=== PATIENT | female | born 1950 | race Caucasian/White ===

== ENCOUNTER 2020-02-23 07:00 | Outpatient (NON) | payer MEDICARE, SELFPAY ==
[2020-02-23 22:30] LABS: SARS-CoV-2 RNA PCR Negative
== END 2020-02-23 07:01 ==
PROVIDERS: PCP Family Medicine; Visit Provider Family Medicine
DX: Z20.828 Contact with and (suspected) exposure to other viral communicable diseases (principal); J02.9 Acute pharyngitis, unspecified
CPT/HCPCS: 87635; C9803; U0003

== ENCOUNTER 2020-03-29 06:53 | Outpatient (NON) | payer MEDICARE, SELFPAY ==
[2020-03-30 13:43] LABS: SARS-CoV-2 RNA PCR Negative
== END 2020-03-29 06:54 ==
LOC: ANHCOVIDDT 07:19
PROVIDERS: PCP Family Medicine; Visit Provider Family Medicine
DX: J02.9 Acute pharyngitis, unspecified (principal); Z20.828 Contact with and (suspected) exposure to other viral communicable diseases
CPT/HCPCS: 87635; C9803; U0003

== ENCOUNTER 2020-08-27 10:20 | Outpatient (CLI) | payer MEDICARE, SELFPAY ==
--- NOTE | ~2020-08-27 | MM_ITS ---
EXAMINATION: MM screening [facility] BI w marcos HISTORY: Screening mammogram TECHNIQUE: Craniocaudal and mediolateral oblique 3-D tomosynthesis images were obtained and synthetic 2-D images were generated. CAD analysis was submitted and interpreted. COMPARISON: No prior mammogram is available for comparison at this institution. BREAST PARENCHYMAL COMPOSITION: There are scattered areas of fibroglandular density. FINDINGS: There is no evidence of suspicious mass, calcification, or architectural distortion to sugg est malignancy in either breast. There has been no suspicious interval change. IMPRESSION: 1. No mammographic evidence of malignancy. 2. Recommend routine screening mammography in one year. BI-RADS Category 1: Negative Reviewed, dictated and finalized at location A.
== END 2020-08-27 10:21 | disposition home or self-care (01) ==
PROVIDERS: PCP Family Medicine; Visit Provider Family Medicine
DX: Z12.31 Encounter for screening mammogram for malignant neoplasm of breast (principal)
CPT/HCPCS: 77063; 77067

== ENCOUNTER 2022-07-22 12:11 | Outpatient (CLI) | payer MEDICARE, SELFPAY ==
--- NOTE | 2022-07-22 12:23 | ECG_ITS ---
Measurements Intervals [place] Rate: 88 P: 73 [place]: 159 QRS: 26 QRSD: 91 T: 56 QT: 363 QTc: 441 Interpretive Statements SINUS RHYTHM NORMAL ECG NO PREVIOUS ECG AVAILABLE FOR COMPARISON Electronically Signed On 07-22-2022 14:34:35 CDT by Dimitris Williamson D.O.
== END 2022-07-22 12:12 | disposition home or self-care (01) ==
PROVIDERS: PCP Family Medicine; Visit Provider Family Medicine
DX: I49.9 Cardiac arrhythmia, unspecified (principal)
CPT/HCPCS: 93005

== ENCOUNTER → 2023-01-08 10:01 | Outpatient (CLI) | payer MEDICARE, SELFPAY ==
--- NOTE | ~2023-01-08 | MM_ITS ---
EXAMINATION: MM screening wilbert BI w marcos HISTORY: Screening mammogram TECHNIQUE: Craniocaudal and mediolateral oblique 3-D tomosynthesis images were obtained and synthetic 2-D images were generated. CAD analysis was submitted and interpreted. COMPARISON: August 27, 2020 bilateral screening mammogram BREAST PARENCHYMAL COMPOSITION: There are scattered areas of fibroglandular density. FINDINGS: There is no evidence of suspicious mass, calcification, or architectural distortion to sugg est malignancy in either breast. There has been no suspicious interval change. IMPRESSION: 1. No mammographic evidence of malignancy. 2. Recommend routine screening mammography in one year. BI-RADS Category 1: Negative Reviewed, dictated and finalized at location A.
== END ==
PROVIDERS: PCP Nurse Practitioner Family; Visit Provider Nurse Practitioner Family
DX: Z12.31 Encounter for screening mammogram for malignant neoplasm of breast (principal)
CPT/HCPCS: 77063; 77067

== ENCOUNTER 2023-11-18 10:43 | Emergency (ER) | payer MEDICARE, SELFPAY ==
[2023-11-18 10:59] VITALS: BP 133/68; PULSE 71; RESP 16; TEMP 37.2; O2SAT 99
--- NOTE | 2023-11-18 12:01 | ED.EYEPROB ---
HPI - Eye Problem General Chief complaint: Eye Problems Stated complaint: right eye issue Time Seen by Provider: 11/18/23 11:53 Source: patient and RN notes reviewed Mode of arrival: ambulatory Limitations: no limitations History of Present Illness HPI Narrative: Patient presents today complaining of irritation and swelling to the right upper eyelid. Discomfort started 3 or 4 days ago and swallowed started yesterday. Denies drainage. She does were glasses. Denies vision changes. Related Data Home Medications Medication Instructions Recorded Confirmed cyanocobalamin (vitamin B-12) 500 500 mcg PO DAILY 03/23/19 07/27/23 mcg tablet (Vitamin B-12) calcium carbonate (Calcium 600) 600 mg PO BID 11/15/19 07/27/23 fexofenadine 180 mg tablet 180 mg PO DAILY PRN allergy 11/15/19 07/27/23 (Allergy Relief (fexofenadine)) tetrahydrozoline 0.05 % eye drops 1 drp ophthalmic (eye) ONCE PRN 05/20/20 07/27/23 (Visine) itchy eye cholecalciferol (vitamin D3) 50 2,000 unit PO DAILY 11/05/20 07/27/23 mcg (2,000 unit) capsule Allergies Allergy/AdvReac Type Severity Reaction Status Date / Time adhesive tape Allergy Mild Verified 05/14/16 09:05 menthol Allergy Mild Verified 05/14/16 09:05 adhesive Allergy Unknown Verified 02/04/10 15:56 Review of Systems Review of Systems: CONSTITUTIONAL: Denies body aches, fever, chills, or sweats. EYES: Denies visual changes, redness, or discharge.+ right eyelid irritation and swelling ENT: Denies rhinorrhea, congestion, sore throat, or otalgia. CARDIOVASCULAR: Denies chest pain, palpitations, or edema. RESPIRATORY: Denies cough or dyspnea. GASTROINTESTINAL: Denies abdominal pain, nausea, vomiting, or diarrhea. GENITOURINARY: Denies dysuria or hematuria. SKIN: Denies rash, itching, or wounds. MUSCULOSKELETAL: Denies back pain, joint pain, or myalgia. NEUROLOGIC: Denies headache, numbness, tingling, or weakness. PSYCH: Denies depression or anxiety. [facility], [facility] Past Medical History Medical History Arrhythmia (07/22/22) irregularly irregular . TSH normal 4.10 06/29/2022. EKG 07/22/2022 with normal sinus rhythm At high risk for falls At moderate risk for fall BMI 34.0-34.9,adult BMI 37.0-37.9, adult BMI 38.0-38.9,adult BMI 39.0-39.9,adult Breast cancer screening by mammogram normal mammogram 01/08/2023 with recheck annually. Chronic right hip pain (~2021) Colon cancer screening normal colonoscopy 2016 with recheck in 10 years. COVID-19 (~07/02/22) Dyshidrotic eczema (~09/04/21) on the feet Elevated TSH (06/30/23) TSH elevated at 5.43 on 06/30/2023. Fungal infection of nail all of the toenails 09/04/2021 Grieving (~06/2022) around June,. Left knee pain Mixed hyperlipidemia cholesterol 215, triglycerides 131 with HDL excellent at 74 and LDL elevated 116 with ratio normal at 2.9 on 06/30/2023. Obesity (BMI 30-39.9) Polycythemia hemoglobin 15.6, hematocrit 48.7 on 06/30/2023. Sore throat Tinea pedis Family History Family History Father Family history of tuberculosis Family history of emphysema Family history of coronary artery disease Mother Diabetes mellitus Hypertension Grandparent Family history of malignant neoplasm of uterus Other Cerebrovascular accident Family history of allergic disorder Family history of chronic obstructive pulmonary disease Social History Social History Smoking status: Former smoker Alcohol intake: never Substance use: never Substance use type: does not use Lack of Transportation: No Lack of Food: Never True Current Housing: I Have Housing Concerned About Future Housing: No Difficulty Paying Gas/Electric Bills: No Difficulty Paying for Meds: No Currently Unemployed: No Education: High School Diploma/GED
== END 2023-11-18 12:14 | disposition home or self-care (01) ==
PROVIDERS: Emergency Provider Nurse Practitioner; PCP Nurse Practitioner Family
DX: H02.89 Other specified disorders of eyelid (principal); H02.841 Edema of right upper eyelid; Z87.891 Personal history of nicotine dependence; E78.2 Mixed hyperlipidemia; E66.9 Obesity, unspecified; Z68.39 Body mass index [BMI] 39.0-39.9, adult; Z86.16 Personal history of COVID-19
CPT/HCPCS: 99212; G0463

== ENCOUNTER → 2024-02-02 15:03 | Outpatient (CLI) | payer MEDICARE, SELFPAY ==
--- NOTE | ~2024-02-02 | XR_ITS ---
XR cervical spine min 6V Ordering provider: Vu Adorno MD History: . pain lower neck/into rt shoulder blade a while no injury . Comparison: None. FINDINGS: VERTEBRAL BODIES: Postoperative changes seen at the levels of C3, C4 and C5. Otherwise, Normal height and alignment. No visible fracture or subluxation. The dens is intact. DISK SPACES: Disc spacers seen at the level of C4-C5. Otherwise, Narrowing of all the other disc spac es is noted. Multilevel facet joint disease. Multilevel uncovertebral joint osteoarthritic changes. B ilateral narrowing of the foramina is seen in the lower cervical area. PARASPINOUS SOFT TISSUES: No prevertebral soft tissue swelling. IMPRESSION: No acute osseous abnormality cervical spine. Postoperative changes in the mid cervical area. Multilevel degenerative disc disease, facet joint disease and uncovertebral osteoarthritic changes wi th intervertebral foraminal narrowing in the lower cervical areas. Reviewed, dictated and finalized at location A. IMPRESSION: No acute osseous abnormality cervical spine. Postoperative changes in the mid cervical area. Multilevel degenerative disc disease, facet joint disease and uncovertebral ost eoarthritic changes with intervertebral foraminal narrowing in the lower cervic al areas.
--- NOTE | ~2024-02-02 | XR_ITS ---
3 VIEWS THORACIC SPINE Ordering provider: Vu Adorno MD History: . pain mid back/rt shoulder blade no injury off/on awhile . Comparison: None. FINDINGS: VERTEBRAL BODIES: Dextroscoliosis in the lumbar area. Compression fracture with Loss of volume of T12 which may be acute or chronic. Otherwise, Normal height and alignment. No other visible fracture or subluxation. DISK SPACES: Narrowing is seen at multiple levels. SOFT TISSUES: Normal. IMPRESSION: Compression fracture of T12 which may be acute or chronic. Otherwise, No acute other osseous abnormal ity of the thoracic spine. Levoscoliosis in the lumbar spine. Reviewed, dictated and finalized at location A. IMPRESSION: Compression fracture of T12 which may be acute or chronic. Otherwise, No acute other osseous abnormality of the thoracic spine. Levoscoliosis in the lumbar spine.
== END ==
PROVIDERS: PCP Family Medicine; Visit Provider Family Medicine
DX: S22.080A Wedge compression fracture of T11-T12 vertebra, initial encounter for closed fracture (principal); X58.XXXA Exposure to other specified factors, initial encounter; M51.34 Other intervertebral disc degeneration, thoracic region
CPT/HCPCS: 72052; 72070

== ENCOUNTER 2024-03-08 09:47 | Outpatient (CLI) | payer MEDICARE, SELFPAY ==
--- NOTE | 2024-04-02 18:35 | WPDSLEEPSTUD ---
Sleep Study Date of Study: 03/08/24 Ordering Provider: Vu Adorno MD Interpreting Physician: Yadira Kwong DO Sleep Study Type: Split Polysomnogram Height: 1.52 m Weight: 86.183 kg Body Mass Index: 37.0 Neck Circumference (inches): 15 [place]: 8 Reason for Sleep Study Difficulty sleeping Sleep History The patient is a 73-year-old female that had a sleep study ordered due to difficulty sleeping. The patient rarely awakens from sleep short of breath. She denies awakening at night with heartburn, belching or cough. She denies snoring. She denies having trouble sleeping when she has a cold. She denies waking up gasping for air throughout the night. She denies having breathing problems at night observed by herself or others. She rarely sweats excessively at night. She rarely has heart palpitations or irregular heartbeats during the night. She frequently falls asleep during the day but never while driving. She denies sleep paralysis and hypnagogic/ hypnopompic hallucinations. She rarely experiences loss of muscle tone when extremely emotional. She denies having trouble at school or work due to sleepiness. She denies feeling afraid of going to sleep. She rarely has nightmares. She rarely remembers her dreams. She frequently has thoughts racing through her mind. She frequently feels sad or depressed. She occasionally has anxiety. She rarely has muscular tension. She frequently notices parts of her body jerk. She denies kicking during the night. She denies having crawling and aching feelings in her legs. She rarely has leg pain during the night. She occasionally grinds her teeth during sleep but never awakens with morning jaw pain. She is occasionally bothered by pain during the day but rarely awakened by pain during the night. She constantly wakes up feeling stiff in the morning. She frequently wakes with sore or achy muscles. She frequently wakes up with pain in the neck, spine and other joints. She goes to bed between 9-10 p.m. on both weekdays and weekends. It takes her 60-90 minutes to fall asleep. She wakes up once throughout the night to urinate and that can take an hour for her to fall back asleep. She wakes up between 4:30-5 a.m. on both weekdays and weekends. She typically gets 5 hours of sleep per night. She currently lives alone. She denies consuming any caffeinated beverages within 2 hours of bedtime. She denies engaging in physical exercise before bedtime. She will occasionally read before falling asleep. She will watch television before falling asleep. She will take naps in the afternoon and evening and they are refreshing. She has 1 cup of coffee per day. She quit smoking cigarettes 16 years ago. She denies alcohol and recreational drug use. [facility] Past Medical History Medical History Arrhythmia (07/22/22) irregularly irregular . TSH normal 4.10 06/29/2022. EKG 07/22/2022 with normal sinus rhythm At high risk for falls At moderate risk for fall BMI 34.0-34.9,adult BMI 37.0-37.9, adult BMI 38.0-38.9,adult BMI 39.0-39.9,adult Breast cancer screening by mammogram normal mammogram 01/08/2023 with recheck annually. Chronic right hip pain (~2021) Chronic thoracic back pain X-ray T-spine 02/02/2024 with diffuse degenerative disc disease and arthritis. Colon cancer screening normal colonoscopy 2016 with recheck in 10 years. COVID-19 (~07/02/22) Dyshidrotic eczema (~09/04/21) on the feet Elevated TSH (06/30/23) TSH elevated at 5.43 on 06/30/2023. Fungal infection of nail all of the toenails 09/04/2021 Grieving (~06/2022) around June,. Hypersomnia (~2023) Left knee pain Mixed hyperlipidemia cholesterol 215, triglycerides 131 with HDL excellent at 74 and LDL elevated 116 with ratio normal at 2.9 on 06/30/2023. Obesity (BMI 30-39.9) Polycythemia hemoglobin 15.6, hematocrit 48.7 on 06/30/2023. Sore throat Tinea pedis Family History Family History Father Family history of tuberculosis Family history of emphysema Family history of coronary artery disease Mother Diabetes mellitus Hypertension Grandparent Family history of malignant neoplasm of uterus Other Cerebrovascular accident Family history of allergic disorder Family history of chronic obstructive pulmonary disease Social History Social History Smoking status: Former smoker Alcohol intake: never Substance use: never Substance use type: does not use Lack of Transportation: No Lack of Food: Never True Current Housing: I Have Housing Concerned About Future Housing: No Difficulty Paying Gas/Electric Bills: No Difficulty Paying for Meds: No Currently Unemployed: No Education: High School Diploma/GED Difficulty w/ Childcare or Family Care: No Medications Home Medications Medication Instructions Recorded Confirmed Type cyanocobalamin (vitamin B-12) 500 500 mcg PO DAILY 03/23/19 02/02/24 History mcg tablet (Vitamin B-12) calcium carbonate (Calcium 600) 600 mg PO BID 11/15/19 02/02/24 History fexofenadine 180 mg tablet 180 mg PO DAILY PRN allergy 11/15/19 02/02/24 History (Allergy Relief (fexofenadine)) tetrahydrozoline 0.05 % eye drops 1 drp ophthalmic (eye) ONCE PRN 05/20/20 02/02/24 History (Visine) itchy eye cholecalciferol (vitamin D3) 50 2,000 unit PO DAILY 11/05/20 02/02/24 History mcg (2,000 unit) capsule lisinopril 40 mg tablet 40 mg PO DAILY #90 tabs 06/10/23 02/02/24 Rx omeprazole 20 mg capsule,delayed 20 mg PO DAILY #90 caps 06/10/23 02/02/24 Rx release celecoxib 200 mg capsule (Celebrex) 200 mg PO DAILY PRN pain #90 caps 02/21/24 Rx Sleep Procedure A full night split study using the [employer] multi-channel system recorded the standard physiologic parameters including EEG, EOG, submentalis EMG, anterior tibialis EMG, EKG, body position, nasal and oral airflow using nasal pressure sensor and thermistor.? Respiratory parameters of chest and abdominal movements were recorded with Respiratory Inductance Plethysmography belts. Oxygen saturation was recorded by pulse oximetry. Video monitoring was also performed. Sleep stages, periodic limb movements, and EEG arousals were scored in 30 second epochs according to the criteria of the AASM Scoring Manual. The Apnea-Hypopnea Index was calculated using CMS guidelines for definition of hypopnea with 4% O2 desaturations while scoring respiratory events. Sleep Architecture During the diagnostic portion of the study, the total recording time was 190.1 minutes. The total sleep time was 129.5 minutes. Sleep latency was 11.1 minutes.? REM latency was 95.5 minutes. Sleep Efficiency was 68.1%. The patient had 24 awakenings for an awakening index of 11.1. Wake after sleep onset time was 49.5 minutes. The patient spent 18.5 minutes, 14.3% of total sleep time in Stage N1. The patient spent 84.5 minutes, 65.3% in Stage N2. The patient spent 7.0 minutes, 5.4% in Stage N3. The patient spent 19.5 minutes, 15.1% in Stage REM sleep. At 01:26:56 AM the patient was placed on PAP treatment and was titrated at pressures ranging from 5 cm H20 up to 7 cm H20. During the treatment portion of the study, the total recording time was 225.2 minutes.? The total sleep time was 134.5 minutes. Sleep latency was 7.5 minutes. REM latency was 57.0 minutes. Sleep Efficiency was 59.7%. Wake after Sleep Onset time was 83.0 minutes. The patient spent 21.0 minutes, 15.6% of total sleep time in Stage N1. The patient spent 87.5 minutes, 65.1% in Stage N2. The patient spent 0.0 minutes, 0.0% in Stage N3. The patient spent 26.0 minutes, 19.3% in Stage REM. Respiratory Analysis During the diagnostic portion of the study, the patient had 12 hypopneas and 2 central apneas for an overall Apnea Hypopnea Index of 6.5 events per hour. The REM Apnea Hypopnea Index was 33.8. The NREM Apnea Hypopnea Index was 1.6. The patient had a Central Apnea Hypopnea Index of 0.9. There was no evidence of Jayjay-Campbell Respirations. During the treatment portion of the study, the patient had 12 hypopneas for an overall Apnea Hypopnea Index of 5.4 events per hour. The REM Apnea Hypopnea Index was 23.1. The NREM Apnea Hypopnea Index was 1.1. The patient had a Central Apnea Hypopnea Index of 0. There was no evidence of Jayjay-Campbell Respirations. The patient was started on CPAP 5 cm H2O and titrated to CPAP 7 cm H2O due to hypopneas. The patient was able to fall asleep starting on CPAP 5 cm H2O. The patient was able to achieve REM sleep starting on CPAP 5 cm H2O. The patient was able to achieve a residual AHI less than 5 with both NREM and REM sleep in the supine position on the final pressure. On CPAP 7 cm H2O, the patient spent 56 minutes in NREM and 0.5 minutes in REM with 2 hypopneas, resulting in an AHI of 2.1. The patient had a sleep efficiency of 42.8% on this pressure setting. Arousals During the diagnostic portion of the study, there were a total of 47 arousals for an arousal index of 21.8.? There were 4 respiratory arousals for an index of 1.9. There were 12 periodic limb movement arousals for an index of 5.6.? There were 9 isolated limb movement arousals for an index of 4.2. There were 23 spontaneous arousals for an index of 10.7. During the treatment portion of the study, there were a total of 71 arousals for an index of 31.7.? There were 2 respiratory arousals for an index of 0.9. There were 10 periodic limb movement arousals for an index of 4.5.? There were 9 isolated limb movement arousals for an index of 4.0. There were 50 spontaneous arousals for an index of 22.3. Periodic Limb Movements During the diagnostic portion of the study, the patient had 14 isolated limb movements with an index of 6.5. The patient had 155 periodic limb movements with an index of 71.8, which is elevated (normal < 15). The patient had a total of 169 limb movements with a total limb movement index of 78.3. During the treatment portion of the study, the patient had 13 isolated limb movements with an index of 5.8. The patient had 36 periodic limb movements with an index of 16.1, which is elevated (normal < 15). The patient had a total of 49 limb movements with a total limb movement index of 21.9. Oximetry Data During the diagnostic portion of the study, the patient had an average oxygen saturation of 94% in wake with a minimum oxygen saturation of 83% and a maximum oxygen saturation of 98%. The patient had an average oxygen saturation of 91.8% in sleep with a minimum oxygen saturation of 84.0% and a maximum oxygen saturation of 98.0%. The patient had 14 oxygen desaturations resulting in an Oxygen Desaturation Index of 6.5. The patient spent 7.3 minutes, 3.8% of total sleep time with an oxygen saturation less than 88%. During the treatment portion of the study, the patient had an average oxygen saturation of 93.9% in wake with a minimum oxygen saturation of 87.0% and a maximum oxygen saturation of 98.0%. The patient had an average oxygen saturation of 92.5% in sleep with a minimum oxygen saturation of 87.0% and a maximum oxygen saturation of 97.0%. The patient had 12 oxygen desaturations resulting in an Oxygen Desaturation Index of 5.4. The patient spent 0.5 minutes, 0.2% of total sleep time with an oxygen saturation less than 88%. Snoring Profile Mild snoring was present intermittently in the baseline portion of the study. Cardiac Profile The EKG lead showed normal sinus rhythm. No arrhythmias or PVCs were seen. During the diagnostic portion of the study, the average pulse rate was 74.8 bpm.? The minimum pulse rate was 56.0 bpm. The maximum pulse rate was 113.0 bpm. During the treatment portion of the study, the average pulse rate was 72.1 bpm.? The minimum pulse rate was 54.0 bpm. The maximum pulse rate was 107.0 bpm. EEG Profile No signs of seizure activity seen. Assessment and Plan Assessment and Plan (1) SALLIE (obstructive sleep apnea): Code(s): G47.33 - Obstructive sleep apnea (adult) (pediatric) Status: Acute Assessment and Plan: In the baseline portion of the study, the patient had an overall AHI of 6.5 with desaturation down to 84%. This is consistent with mild sleep apnea. Due to the patient's hypertension, she qualifies for treatment. The patient was started on CPAP 5 cm H2O and titrated to CPAP 7 cm H2O due to hypopneas. The patient's sleep apnea resolved on the final pressure setting. I recommend that the patient be prescribed CPAP 7 cm H2O, size small Resmed N30i mask, CPAP filters/tubing and heated humidity. This should be used with all episodes of sleep.? Compliance should be reviewed within 31-90 days of starting therapy for usage greater than 4 hours per night greater than 70% of the nights. The patient should be asked about symptoms such as?excessive daytime sleepiness, quality of sleep, decreased nocturia, increased?mental functioning such as memory, mood, and concentration. The patient also mentioned having frequent symptoms of anxiety and depression in her sleep history. I recommend that the patient complete a PHQ-9 and MIKE-7 for further evaluation of mood disorders and review the results with her PCP. (2) PLMD (periodic limb movement disorder): Code(s): G47.61 - Periodic limb movement disorder Status: Acute Assessment and Plan: The patient had a significant number of limb movements during the study with the majority being periodic in nature. The patient's sleep history does not suggest Restless Leg Syndrome. I recommend that the patient have a serum ferritin drawn for evaluation of iron deficiency anemia. If the patient has a serum ferritin less than 75 ng/mL, I recommend starting a daily iron supplement and a Vitamin C supplement for better absorption. If the serum ferritin is greater than 75 ng/mL, I recommend starting a dopamine agonist and titrating the dose until symptoms resolve. There are nonpharmacological methods to treat limb movements including daily exercise, stretching calf muscles before bed, avoiding excessive amounts of caffeine and alcohol, vitamin B supplementation, magnesium lotion massaged into legs before bed, and use of a weighted blanket. Data The data obtained during this sleep study is adequate for interpretation. Certification This sleep study has been reviewed by a board certified sleep medicine physician.
[2024-04-02 18:37] VITALS: BMI 37.0
== END 2024-03-09 05:34 | disposition home or self-care (01) ==
LOC: ANHCSM 09:55
PROVIDERS: PCP Family Medicine; Visit Provider Family Medicine
DX: G47.8 Other sleep disorders (principal); G47.33 Obstructive sleep apnea (adult) (pediatric); G47.61 Periodic limb movement disorder
CPT/HCPCS: 95811

== ENCOUNTER 2024-04-21 11:34 | Inpatient (IN) | payer MEDICARE, SELFPAY ==
[2024-04-21] VITALS (13 sets, daily range): BP systolic 113–158; BP diastolic 66–95; PULSE 79–108; RESP 14–20; TEMP 36.2–37.1; O2SAT 94–100; BMI 38.6
--- NOTE | ~2024-04-21 | CT_ITS ---
EXAMINATION: CT abdomen pelvis w con DATE: 04/21/2024 12:36 INDICATION: Nausea, vomiting and diarrhea. Abdominal pain. TECHNIQUE: Computed tomography (CT) of the abdomen and pelvis was performed with 100 mL Omnipaque-350 intravenous contrast. Automated exposure control and iterative reconstruction technique were employe d. The dose-length product was 826.29 mGy-cm. COMPARISON: None FINDINGS: Mild bibasilar atelectasis. Heart size normal. Atherosclerotic coronary artery calcification is. No p ericardial or pleural effusion. Couple large calcified gallstones nearly filling the otherwise unrema rkable gallbladder. Liver, spleen, pancreas, bilateral adrenal glands and right kidney are normal. In determinate 1.4 cm soft tissue exophytic lesion at the lower pole the left kidney which could represe nt a complex proteinaceous/hemorrhagic cyst or enhancing renal cell carcinoma. [address] one at a lower pole calyx of the left kidney. Some degree of intestinal malrotation with the duodenal jejunal junction at the midline and significa ntly caudal to the level of the gastric pylorus. There are multiple loops of dilated small bowel in t he abdomen. The greatest degree of dilation measuring up to 5.5 cm in maximal diameter is seen proxim ally with gradually decreasing caliber more distally eventually, and normal in caliber with intermitt ent decompressed segments but without a discrete transition point to suggest obstruction. There is so me wall thickening along the more distal small bowel in the right lower quadrant with some associated mesenteric edema. Within this region of mesenteric edema is the appendix which is dilated to 10 mm. There is also edematous wall thickening of the cecum at the appendiceal orifice suspicious for acute appendicitis. Abutting the appendix is a 3.7 x 1.5 cm nonloculated appearing fluid collection without peripheral organized wall. No organized abscess or free intraperitoneal gas. There are few diverticula along the descending and sigmoid colon without adjacent from trace strandin g to suggest diverticulitis. Visualization of the deep pelvis is somewhat limited by dense metallic s treak artifact related to a right total hip arthroplasty. The bladder, anteverted uterus and bilatera l adnexa are unremarkable. No pathologically enlarged abdominal or pelvic lymphadenopathy. Moderate l umbar levoscoliosis with severe lumbar and lower thoracic spondylosis. There is fusion across the rig ht side of the L2-L3 and L3-L4 disc spaces. Chronic T12 burst fracture which can be seen on thoracic spine radiograph dated 02/02/2024. IMPRESSION: 1. Dilated appendix with surrounding inflammatory changes including edematous cecal wall thickening a t the appendiceal orifice consistent with acute appendicitis. Small collection of nonloculated appear ing fluid near the appendix but no organized abscess or free intraperitoneal gas. 2. Multiple dilated loops of small bowel which appears to gradually decrease caliber distally in the right lower quadrant where there is some wall thickening of the small bowel but no discrete transitio n point and would favor enteritis reactive ileus related to acute appendicitis over a bowel obstructi on. 3. Some degree of intestinal malrotation but without evident volvulus. 4. 1.4 cm indeterminate left renal lesion which could represent a statistically most likely complex m ixed/proteinaceous cyst versus less likely solid enhancing renal cell carcinoma. Recommend further ev aluation with follow-up pre and postcontrast MRI or CT. 5. Nonobstructing 2 mm left renal stone. 6. Cholelithiasis. Reviewed, dictated and finalized at location A. [employer] IMPRESSION: 1. Dilated appendix with surrounding inflammatory changes including edematous c ecal wall thickening at the appendiceal orifice consistent with acute appendici tis. Small collection of nonloculated appearing fluid near the appendix but no organized abscess or free intraperitoneal gas. 2. Multiple dilated loops of small bowel which appears to gradually decrease ca liber distally in the right lower quadrant where there is some wall thickening of the small bowel but no discrete transition point and would favor enteritis r eactive ileus related to acute appendicitis over a bowel obstruction. 3. Some degree of intestinal malrotation but without evident volvulus. 4. 1.4 cm indeterminate left renal lesion which could represent a statistically most likely complex mixed/proteinaceous cyst versus less likely solid enhancin g renal cell carcinoma. Recommend further evaluation with follow-up pre and pos tcontrast MRI or CT. 5. Nonobstructing 2 mm left renal stone. 6. Cholelithiasis.
[2024-04-21 12:04] LABS: Basophils Percent Auto 0.1 % (0.2-1.2); Eosinophils Absolute Auto 0.1 K/mm3 (0-0.3); Eosinophils Percent Auto 1.2 % (0-4.4); Hematocrit 46.1 % (37.0-47.0); Hemoglobin 15.4 g/dL (12.0-15.0); Immature Granulocyte Absolute 0.02 K/mm3 (0.00-0.031); Immature Granulocyte Percent A 0.3 % (0-0.5); Lymphocytes Absolute Auto 0.52 K/mm3 (0.9-3.2); Lymphocytes Percent Auto 7.6 % (18.3-44.2); Mean Corpuscular HGB Conc 33.4 g/dl (32-36); Mean Corpuscular Hemoglobin 28.6 pg (26-34); Mean Corpuscular Volume 85.7 fl (80-100); Monocytes Absolute Auto 0.4 K/mm3 (0.1-0.6); Monocytes Percent Auto 6.3 % (2.6-8.5); Neutrophils Absolute Auto 5.8 K/mm3 (1.3-6.7); Neutrophils Percent Auto 84.5 % (45.5-73.1); Platelet Count Result 234 k/mm3 (150-375); Red Blood Count 5.38 M/mm3 (4.2-5.4); Red Cell Distribution Width 13.9 % (11.5-14.5); White Blood Count 6.9 K/mm3 (4.5-10.0)
[2024-04-21 12:15] LABS: Alanine Aminotransferase 16 U/L (6-35); Albumin Level 3.9 g/dL (3.5-5.1); Alkaline Phosphatase 75 U/L (38-126); Anion Gap 6 mmol/L (4-12); Aspartate Amino Transferase 26 U/L (14-36); Bilirubin,Total 1.5 mg/dL (0.2-1.3); Blood Urea Nitrogen 30 mg/dL (7-17); Calcium 9.6 mg/dL (8.4-10.2); Carbon Dioxide 26 mmol/L (22-30); Chloride 101 mmol/L (98-107); Estimated Glomerular Filt Rate > 60; Glucose 131 mg/dL (65-110); Lipase 59 U/L (23-300); Potassium 3.8 mmol/L (3.4-5.0); Sodium 133 mmol/L (137-145)
--- NOTE | 2024-04-21 12:18 | ED.GENADULT ---
HPI - General Adult General Chief complaint: Nausea/Vomiting/Diarrhea Stated complaint: N/V/D x4 days Time Seen by Provider: 04/21/24 12:02 History of Present Illness HPI narrative: 76-year-old female presenting to the emergency department for evaluation for nausea vomiting and diarrhea. Patient reports that the symptoms started a few days ago and were initially associated was upper abdominal pain but then progressed to lower abdominal pain. Patient still has her gallbladder and appendix. Related Data Home Medications ?Medication ?Instructions ?Recorded ?Confirmed ?Last Taken ?Type cyanocobalamin (vitamin B-12) 500 500 mcg PO DAILY 03/23/19 04/21/24 04/21/24 History mcg tablet (Vitamin B-12) calcium carbonate (Calcium 600) 600 mg PO BID 11/15/19 04/21/24 04/21/24 History fexofenadine 180 mg tablet 180 mg PO DAILY PRN allergy 11/15/19 04/21/24 04/21/24 History (Allergy Relief (fexofenadine)) cholecalciferol (vitamin D3) 50 2,000 unit PO DAILY 11/05/20 04/21/24 04/21/24 History mcg (2,000 unit) capsule Allergies Allergy/AdvReac Type Severity Reaction Status Date / Time adhesive tape Allergy Mild Blister Verified 04/21/24 15:01 menthol Allergy Mild Unknown Verified 04/21/24 15:01 adhesive Allergy Unknown Blister Verified 04/21/24 15:01 bacitracin (From Neosporin AdvReac Itching Verified 04/21/24 15:01 ([id number])) neomycin (From Neosporin AdvReac Itching Verified 04/21/24 15:01 ([id number])) polymyxin B (From Neosporin AdvReac Itching Verified 04/21/24 15:01 ([id number])) Review of Systems Review of Systems: All systems reviewed & are unremarkable except as noted in HPI and below PMFSH Past Medical History Medical History Renal mass, left (04/21/24) 1.4 cm indeterminate left renal mass on CT abdomen and pelvis in the ER 04/21/2024 with need for follow-up MRI or CT. Hypersomnia (~2023) Chronic thoracic back pain X-ray T-spine 02/02/2024 with diffuse degenerative disc disease and arthritis. At moderate risk for fall Colon cancer screening normal colonoscopy 2016 with recheck in 10 years. Polycythemia hemoglobin 15.6, hematocrit 48.7 on 06/30/2023. Elevated TSH (06/30/23) TSH elevated at 5.43 on 06/30/2023. Mixed hyperlipidemia cholesterol 215, triglycerides 131 with HDL excellent at 74 and LDL elevated 116 with ratio normal at 2.9 on 06/30/2023. Grieving (~06/2022) around June,. BMI 39.0-39.9,adult Arrhythmia (07/22/22) irregularly irregular . TSH normal 4.10 06/29/2022. EKG 07/22/2022 with normal sinus rhythm COVID-19 (~07/02/22) Chronic right hip pain (~2021) BMI 34.0-34.9,adult Obesity (BMI 30-39.9) Dyshidrotic eczema (~09/04/21) on the feet Tinea pedis Fungal infection of nail all of the toenails 09/04/2021 At high risk for falls Left knee pain BMI 38.0-38.9,adult BMI 37.0-37.9, adult Breast cancer screening by mammogram normal mammogram 01/08/2023 with recheck annually. Sore throat Family History Family History Father Family history of tuberculosis Family history of emphysema Family history of coronary artery disease Mother Diabetes mellitus Hypertension Grandparent Family history of malignant neoplasm of uterus Other Cerebrovascular accident Family history of allergic disorder Family history of chronic obstructive pulmonary disease Social History Social History Smoking status: Former smoker Alcohol intake: never Substance use: never Substance use type: does not use Do You Feel Safe in your Home?: Yes Lack of Transportation: No Lack of Food: Never True Current Housing: I Have Housing Concerned About Future Housing: No Difficulty Paying Gas/Electric Bills: No Difficulty Paying for Meds: No Currently Unemployed: No Education: High School Diploma/GED Difficulty w/ Childcare or Family Care: No Spiritual care concerns: No Exam Narrative: APPEARANCE: Well appearing, no pain, no distress, well-nourished. HEAD: normocephalic, atraumatic. EYES: PERRLA/EOMI, conjunctivae clear. NOSE: Normal no drainage EARS:TMS clear with good light reflex. THROAT: Pharynx clear, no exudate. NECK: Supple. No adenopathy, no masses. RESPIRATORY: Airway patent, respirations nonlabored. Clear to auscultation bilaterally, no rales, rhonchi, wheezing. CARDIOVASCULAR: Regular rate and rhythm without murmurs rubs or gallops. ABDOMINAL: Lower abdominal tenderness to palpation MUSCULOSKELETAL: Moves all extremities. Strength/ROM intact, No edema, No calf tenderness. NEURO: Alert. Cranial nerves II through XII intact. Grossly intact SKIN: Warm, dry. Normal Color Course Vital Signs Vital signs: Vital Signs Temperature 97.2 F L 04/21/24 11:45 Pulse Rate 108 H 04/21/24 11:45 Respiratory Rate 16 04/21/24 11:45 Blood Pressure 158/92 H 04/21/24 11:45 Pulse Oximetry 98 04/21/24 11:45 Temperature 98.5 F 04/21/24 18:13 Pulse Rate 92 04/21/24 18:13 Respiratory Rate 16 04/21/24 18:13 Blood Pressure 143/95 H 04/21/24 18:13 Pulse Oximetry 95 04/21/24 18:13 Oxygen Delivery Room Air 04/21/24 17:55 Oxygen Flow Rate 6 04/21/24 16:45 Medical Decision Making [facility] [place] Narrative Medical decision making narrative: 73-year-old female presented emergency department for evaluation for abdominal pain. Patient is afebrile with no leukocytosis and hemoglobin of 15.4. Patient has no significant acute abnormalities on her CMP UA was not significant for UTI. CT abdomen pelvis was concerning for acute appendicitis. Case was discussed with surgery, patient was started on Zosyn and patient was admitted to the hospitalist. Differential Diagnosis Differential Diagnosis: Acute appendicitis, colitis, diverticulitis, cholecystitis Vital Signs Vital Signs: Vital Signs Temperature 97.2 F L 04/21/24 11:45 Pulse Rate 108 H 04/21/24 11:45 Respiratory Rate 16 04/21/24 11:45 Blood Pressure 158/92 H 04/21/24 11:45 Pulse Oximetry 98 04/21/24 11:45 Temperature 98.5 F 04/21/24 18:13 Pulse Rate 92 04/21/24 18:13 Respiratory Rate 16 04/21/24 18:13 Blood Pressure 143/95 H 04/21/24 18:13 Pulse Oximetry 95 04/21/24 18:13 Oxygen Delivery Room Air 04/21/24 17:55 Oxygen Flow Rate 6 04/21/24 16:45 Lab Data Lab results reviewed: Yes I reviewed the patient's lab results. 04/21/24 11:57 04/21/24 11:57 Labs: Lab Results 04/21/24 04/21/24 Range/Units 11:57 12:20 WBC 6.9 (4.5-10.0) K/mm3 RBC 5.38 (4.2-5.4) M/mm3 Hgb 15.4 H (12.0-15.0) g/dL Hct 46.1 (37.0-47.0) % MCV 85.7 (80-100) fl MCH 28.6 (26-34) pg MCHC 33.4 (32-36) g/dl RDW 13.9 (11.5-14.5) % Plt Count 234 (150-375) k/mm3 MPV 10.0 (7.4-10.4) fl Immature Gran % (Auto) 0.3 (0-0.5) % Neut % (Auto) 84.5 H (45.5-73.1) % Lymph % (Auto) 7.6 L (18.3-44.2) % Wolfe % (Auto) 6.3 (2.6-8.5) % Eos % (Auto) 1.2 (0-4.4) % Baso % (Auto) 0.1 L (0.2-1.2) % Lymph # (Auto) 0.52 L (0.9-3.2) K/mm3 Wolfe # (Auto) 0.4 (0.1-0.6) K/mm3 Eos # (Auto) 0.1 (0-0.3) K/mm3 Baso # (Auto) 0.0 (0.0-0.1) K/mm3 Abs Immat Gran (auto) 0.02 (0.00-0.031) K/mm3 Absolute Neuts (auto) 5.8 (1.3-6.7) K/mm3 Absolute Nucleated RBC 0.000 (0.0-0.012) K/mm3 Nucleated RBC % 0.0 (0.0-0.2) % Sodium 133 L (137-145) mmol/L Potassium 3.8 (3.4-5.0) mmol/L Chloride 101 (98-107) mmol/L Carbon Dioxide 26 (22-30) mmol/L Anion Gap 6 (4-12) mmol/L BUN 30 H (7-17) mg/dL Creatinine 0.90 (0.7-1.0) mg/dL Estim Creat Clear Calc Not Reportable Estimated GFR > 60 (59 - ) Glucose 131 H (65-110) mg/dL Calcium 9.6 (8.4-10.2) mg/dL Total Bilirubin 1.5 H (0.2-1.3) mg/dL AST 26 (14-36) U/L ALT 16 (6-35) U/L Alkaline Phosphatase 75 (38-126) U/L Total Protein 7.0 (6.3-8.2) g/dL Albumin 3.9 (3.5-5.1) g/dL Lipase 59 (23-300) U/L Urine Color Dark yellow (Yellow) Urine Appearance Cloudy H (Clear) Urine pH 6.0 (5.0-9.0) Ur Specific [place] 1.020 (1.001-1.035) Urine Protein 2+ H (Negative) mg/dL Urine Glucose (UA) Negative (Negative) mg/dL Urine Ketones 1+ H (Negative) mg/dL Ur Blood (Man) 3+ H (Negative) Urine Nitrate Negative (Negative) Urine Bilirubin Negative (Negative) Urine Urobilinogen 1.0 (<2.0) mg/dL Leukocyte Esterase Rfl 1+ H (Negative) STEFAN/UL Urine RBC 3-5 H (0-2) /hpf Urine WBC 0-5 (0-3) /hpf Ur Squamous Epith Cells Few (Few) /hpf Urine Bacteria 2+ H (None) /hpf Imaging Data Radiologist's impression: Impressions Abdomen/Pelvis CT 04/21/24 12:57 IMPRESSION: 1. Dilated appendix with surrounding inflammatory changes including edematous cecal wall thickening at the appendiceal orifice consistent with acute appendicitis. Small collection of nonloculated appearing fluid near the appendix but no organized abscess or free intraperitoneal gas. 2. Multiple dilated loops of small bowel which appears to gradually decrease caliber distally in the right lower quadrant where there is some wall thickening of the small bowel but no discrete transition point and would favor enteritis reactive ileus related to acute appendicitis over a bowel obstruction. 3. Some degree of intestinal malrotation but without evident volvulus. 4. 1.4 cm indeterminate left renal lesion which could represent a statistically most likely complex mixed/proteinaceous cyst versus less likely solid enhancing renal cell carcinoma. Recommend further evaluation with follow-up pre and postcontrast MRI or CT. 5. Nonobstructing 2 mm left renal stone. 6. Cholelithiasis. Discharge Plan Discharge Clinical Impression: Acute appendicitis Patient Disposition: Still a Patient Condition: Serious
[2024-04-21 12:39] LABS: Add Urine Microscopic? YES; Appearance Urine Cloudy (Clear); Bilirubin Urine Negative (Negative); Blood Urine 3+ (Negative); Color Urine Dark Yellow (Yellow); Glucose Urine UA Negative (Negative); Ketones Urine 1+ mg/dL (Negative); Leukocyte Esterase Ur 1+ LEU/UL (Negative); Nitrate Urine Negative (Negative); Protein Urine 2+ mg/dL (Negative)
[2024-04-21 12:55] LABS: WBC Urine 0-5 /hpf (0-3)
[2024-04-21 12:56] LABS: Bacteria Urine 2+ /hpf; Squamous Epithelial Cell Urine Few /hpf (Few)
[2024-04-21] MEDS: ONDANSETRON INJ 4 MG/2 ML VIAL IV PUSH ×2 (14:11→17:17)
[2024-04-21] MEDS: SODIUM CHLORIDE 0.9% IV 1,000 ML 999 ML IV CONT (14:11)
[2024-04-21] MEDS: PIPERACILLN/TAZ 3.375GM/NS50ML 3.375 GM/50 ML BAG IVPB ×3 (14:20→23:49)
--- NOTE | 2024-04-21 14:29 | PM.IMHP ---
H&P: HPI History of Present Illness Date/Time: 04/21/24 14:29 Chief Complaint: Nausea vomiting and diarrhea Narrative: 76-year-old female past medical history of hypertension presenting to the emergency department for evaluation for nausea vomiting and diarrhea. Patient states that a few days ago she started having upper abdominal pain that gradually progressed into the lower abdomen. Associated with nausea and vomiting and diarrhea. CT abdomen pelvis show Dilated appendix with surrounding inflammatory changes including edematous cecal wall thickening at the appendiceal orifice consistent with acute appendicitis. Small collection of nonloculated appearing fluid near the appendix but no organized abscess or free intraperitoneal gas. Multiple dilated loops of small bowel which appears to gradually decrease caliber distally in the right lower quadrant where there is some wall thickening of the small bowel but no discrete transition point and would favor enteritis reactive ileus related to acute appendicitis over a bowel obstruction. Some degree of intestinal malrotation but without evident volvulus. 1.4 cm indeterminate left renal lesion which could represent a statistically most likely complex mixed/proteinaceous cyst versus less likely solid enhancing renal cell carcinoma. Recommend further evaluation with follow-up pre and postcontrast MRI or CT. Patient was also found to have a UTI with 1+ leukocyte esterase, and negative for nitrates, 2+ bacteria. Nonobstructing 2 mm left renal stone. Cholelithiasis. Patient was seen by General surgery will plan to go to OR today. Patient NPO and started on IV Zosyn. Review of Systems Review of Systems: 12 systems were reviewed and are negative except for as per HPI. [facility] Past Medical History Medical History Renal mass, left (04/21/24) 1.4 cm indeterminate left renal mass on CT abdomen and pelvis in the ER 04/21/2024 with need for follow-up MRI or CT. Hypersomnia (~2023) Chronic thoracic back pain X-ray T-spine 02/02/2024 with diffuse degenerative disc disease and arthritis. At moderate risk for fall Colon cancer screening normal colonoscopy 2016 with recheck in 10 years. Polycythemia hemoglobin 15.6, hematocrit 48.7 on 06/30/2023. Elevated TSH (06/30/23) TSH elevated at 5.43 on 06/30/2023. Mixed hyperlipidemia cholesterol 215, triglycerides 131 with HDL excellent at 74 and LDL elevated 116 with ratio normal at 2.9 on 06/30/2023. Grieving (~06/2022) around June,. BMI 39.0-39.9,adult Arrhythmia (07/22/22) irregularly irregular . TSH normal 4.10 06/29/2022. EKG 07/22/2022 with normal sinus rhythm COVID-19 (~07/02/22) Chronic right hip pain (~2021) BMI 34.0-34.9,adult Obesity (BMI 30-39.9) Dyshidrotic eczema (~09/04/21) on the feet Tinea pedis Fungal infection of nail all of the toenails 09/04/2021 At high risk for falls Left knee pain BMI 38.0-38.9,adult BMI 37.0-37.9, adult Breast cancer screening by mammogram normal mammogram 01/08/2023 with recheck annually. Sore throat Family History Family History Father Family history of tuberculosis Family history of emphysema Family history of coronary artery disease Mother Diabetes mellitus Hypertension Grandparent Family history of malignant neoplasm of uterus Other Cerebrovascular accident Family history of allergic disorder Family history of chronic obstructive pulmonary disease Social History Social History Smoking status: Former smoker Alcohol intake: never Substance use: never Substance use type: does not use Do You Feel Safe in your Home?: Yes Lack of Transportation: No Lack of Food: Never True Current Housing: I Have Housing Concerned About Future Housing: No Difficulty Paying Gas/Electric Bills: No Difficulty Paying for Meds: No Currently Unemployed: No Education: High School Diploma/GED Difficulty w/ Childcare or Family Care: No Spiritual care concerns: No Meds Home Medications and Allergies Home Medications ?Medication ?Instructions ?Recorded ?Confirmed ?Type cyanocobalamin (vitamin B-12) 500 500 mcg PO DAILY 03/23/19 04/21/24 History mcg tablet (Vitamin B-12) calcium carbonate (Calcium 600) 600 mg PO BID 11/15/19 04/21/24 History fexofenadine 180 mg tablet 180 mg PO DAILY PRN allergy 11/15/19 04/21/24 History (Allergy Relief (fexofenadine)) cholecalciferol (vitamin D3) 50 2,000 unit PO DAILY 11/05/20 04/21/24 History mcg (2,000 unit) capsule lisinopril 40 mg tablet 40 mg PO DAILY #90 tabs 06/10/23 04/21/24 Rx omeprazole 20 mg capsule,delayed 20 mg PO DAILY #90 caps 06/10/23 04/21/24 Rx release celecoxib 200 mg capsule (Celebrex) 200 mg PO DAILY PRN pain #90 caps 02/21/24 04/21/24 Rx Allergies Allergy/AdvReac Type Severity Reaction Status Date / Time adhesive tape Allergy Mild Blister Verified 04/21/24 15:01 menthol Allergy Mild Unknown Verified 04/21/24 15:01 adhesive Allergy Unknown Blister Verified 04/21/24 15:01 bacitracin (From Neosporin AdvReac Itching Verified 04/21/24 15:01 ([id number])) neomycin (From Neosporin AdvReac Itching Verified 04/21/24 15:01 ([id number])) polymyxin B (From Neosporin AdvReac Itching Verified 04/21/24 15:01 ([id number])) Vital Signs Vital Signs - 24 hr 04/21/24 11:45 04/21/24 11:55 04/21/24 12:18 Temperature 97.2 F L 98.2 F Pulse Rate 108 H 101 H 101 H Respiratory Rate 16 20 20 Blood Pressure 158/92 H 139/87 127/86 Pulse Oximetry 98 98 98 Exam Narrative: General: well appearing, appears stated age. HEENT: normocephalic, atraumatic. Mucous membranes moist. EOMI, PERRLA, bilateral sclera anicteric, no conjunctival injection. Neck supple without JVD, lymphadenopathy, or bruit. Respiratory: clear to ascultation bilaterally. No rales/rhonic/wheezes. Cardiovascular: Regular rate and rhythm, normal S1-S2 upon ascultation. No murmurs, rubs, or clicks. PMI is nondisplaced, capillary refill less than 3 second. Abdomen: Distended, soft, laparoscopic sites Dermabond Extremities: No cyanosis, clubbing, or edema present. Pulses are palpable 2/2. Active ROM to all four extremities. Neuro: Alert and orientated x 4. PERRLA. Cranial nerves 2-12 intact without focal deficit. Skin: Warm, dry, and intact, without rash, erythema, or lesion. Psych: pleasant, cooperative, normal speech, normal affect, no hallucinations, no dysarthia H&P: Results Labs Labs: Short CBC 04/21/24 Range/Units 11:57 WBC 6.9 (4.5-10.0) K/mm3 Hgb 15.4 H (12.0-15.0) g/dL Hct 46.1 (37.0-47.0) % Plt Count 234 (150-375) k/mm3 BMP 04/21/24 11:57 Sodium 133 L Potassium 3.8 Chloride 101 Carbon Dioxide 26 BUN 30 H Creatinine 0.90 Glucose 131 H Calcium 9.6 Liver Function 04/21/24 Range/Units 11:57 Total Bilirubin 1.5 H (0.2-1.3) mg/dL AST 26 (14-36) U/L ALT 16 (6-35) U/L Alkaline Phosphatase 75 (38-126) U/L Albumin 3.9 (3.5-5.1) g/dL Urine 04/21/24 Range/Units 12:20 Urine Color Dark yellow (Yellow) Urine Appearance Cloudy H (Clear) Urine pH 6.0 (5.0-9.0) Ur Specific [place] 1.020 (1.001-1.035) Urine Protein 2+ H (Negative) mg/dL Urine Glucose (UA) Negative (Negative) mg/dL Assessment and Plan Assessment and plan (1) Appendicitis: Code(s): K37 - Unspecified appendicitis Status: Acute Assessment and Plan: Surgery consulted plan for OR at 3:30 a.m. today IV Zosyn q.6 NPO strict IV fluids Blood cultures pending (2) UTI (urinary tract infection): Code(s): N39.0 - Urinary tract infection, site not specified Status: Acute Assessment and Plan: IV Zosyn Cultured sensitivities pending (3) Enteritis: Code(s): K52.9 - Noninfective gastroenteritis and colitis, unspecified Status: Acute Assessment and Plan: IV Zosyn (4) Hyponatremia: Code(s): E87.1 - Hypo-osmolality and hyponatremia Status: Acute Assessment and Plan: IV fluids Repeat BMP in the morning (5) Intestinal malrotation: Code(s): 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 Status: Acute Assessment and Plan: Some degree of intestinal malrotation but without evident volvulus Non peritoneal (6) Total bilirubin, elevated: Code(s): R17 - Unspecified jaundice Status: Acute Assessment and Plan: LFTs within normal limits (7) Kidney stone on left side: Code(s): N20.0 - Calculus of kidney Status: Acute Assessment and Plan: 2 mm stone should be able to pass IV fluid fluids for hydration (8) Renal lesion: Code(s): N28.9 - Disorder of kidney and ureter, unspecified Status: Acute Assessment and Plan: 1.4 cm indeterminate left renal lesion which could represent a statistically most likely complex mixed/proteinaceous cyst versus less likely solid enhancing renal cell carcinoma. Recommend further evaluation with follow-up pre and postcontrast MRI or CT. Plan Incidental findings of gallstones on CT, no intervention needed Quality VTE Prophylaxis VTE prophylaxis: mechanical ordered and pharmacologic ordered Hospitalist MIPS Advance Care Plan I have confirmed that the patient's Advanced Care Plan is present, code status is documented, or surrogate decision maker is listed in patient medical record.: Yes Medication Reconciliation I have utilized all available resources to obtain, update and review the patients current medications (includes all prescriptions, OTC, herbals, cannabis, and nutritional supplements).: Yes
--- NOTE | 2024-04-21 15:32 | WPDANESEPPF ---
Anes - Initial Pre Proc Eval Procedure: Operation Date: 04/21/24 15:30 Proposed Procedures p Laparoscopic Appendectomy - Mode Castro DO Date/Time: 04/21/24 15:32 Surgeon: Mode Castro DO Pre Op Diagnosis: Acute appendicitis Patient Data Age: 73 Gender: F Height: 1.5 m Weight: 86.8 kg Last Vital Signs Temp 37.1 C 04/21/24 14:27 Pulse 103 H 04/21/24 14:27 Resp 20 04/21/24 14:27 BP 137/78 04/21/24 14:27 Pulse Ox 97 04/21/24 14:27 Allergies Allergy/AdvReac Type Severity Reaction Status Date / Time adhesive tape Allergy Mild Blister Verified 04/21/24 15:01 menthol Allergy Mild Unknown Verified 04/21/24 15:01 adhesive Allergy Unknown Blister Verified 04/21/24 15:01 bacitracin (From Neosporin AdvReac Itching Verified 04/21/24 15:01 ([id number])) neomycin (From Neosporin AdvReac Itching Verified 04/21/24 15:01 ([id number])) polymyxin B (From Neosporin AdvReac Itching Verified 04/21/24 15:01 ([id number])) Home Medications ?Medication ?Instructions ?Recorded ?Confirmed ?Type cyanocobalamin (vitamin B-12) 500 500 mcg PO DAILY 03/23/19 04/21/24 History mcg tablet (Vitamin B-12) calcium carbonate (Calcium 600) 600 mg PO BID 11/15/19 04/21/24 History fexofenadine 180 mg tablet 180 mg PO DAILY PRN allergy 11/15/19 04/21/24 History (Allergy Relief (fexofenadine)) cholecalciferol (vitamin D3) 50 2,000 unit PO DAILY 11/05/20 04/21/24 History mcg (2,000 unit) capsule lisinopril 40 mg tablet 40 mg PO DAILY #90 tabs 06/10/23 04/21/24 Rx omeprazole 20 mg capsule,delayed 20 mg PO DAILY #90 caps 06/10/23 04/21/24 Rx release celecoxib 200 mg capsule (Celebrex) 200 mg PO DAILY PRN pain #90 caps 02/21/24 04/21/24 Rx Laboratory Tests 04/21/24 04/21/24 11:57 12:20 WBC 6.9 K/mm3 (4.5-10.0) RBC 5.38 M/mm3 (4.2-5.4) Hgb 15.4 H g/dL (12.0-15.0) Hct 46.1 % (37.0-47.0) MCV 85.7 fl (80-100) MCH 28.6 pg (26-34) MCHC 33.4 g/dl (32-36) RDW 13.9 % (11.5-14.5) Plt Count 234 k/mm3 (150-375) MPV 10.0 fl (7.4-10.4) Immature Gran % (Auto) 0.3 % (0-0.5) Neut % (Auto) 84.5 H % (45.5-73.1) Lymph % (Auto) 7.6 L % (18.3-44.2) [place] % (Auto) 6.3 % (2.6-8.5) Eos % (Auto) 1.2 % (0-4.4) Baso % (Auto) 0.1 L % (0.2-1.2) Lymph # (Auto) 0.52 L K/mm3 (0.9-3.2) [place] # (Auto) 0.4 K/mm3 (0.1-0.6) Eos # (Auto) 0.1 K/mm3 (0-0.3) Baso # (Auto) 0.0 K/mm3 (0.0-0.1) Abs Immat Gran (auto) 0.02 K/mm3 (0.00-0.031) Absolute Neuts (auto) 5.8 K/mm3 (1.3-6.7) Absolute Nucleated RBC 0.000 K/mm3 (0.0-0.012) Nucleated RBC % 0.0 % (0.0-0.2) Sodium 133 L mmol/L (137-145) Potassium 3.8 mmol/L (3.4-5.0) Chloride 101 mmol/L (98-107) Carbon Dioxide 26 mmol/L (22-30) Anion Gap 6 mmol/L (4-12) BUN 30 H mg/dL (7-17) Creatinine 0.90 mg/dL (0.7-1.0) Estim Creat Clear Calc Not Reportable Estimated GFR > 60 (59 - ) Glucose 131 H mg/dL (65-110) Calcium 9.6 mg/dL (8.4-10.2) Total Bilirubin 1.5 H mg/dL (0.2-1.3) AST 26 U/L (14-36) ALT 16 U/L (6-35) Alkaline Phosphatase 75 U/L (38-126) Total Protein 7.0 g/dL (6.3-8.2) Albumin 3.9 g/dL (3.5-5.1) Lipase 59 U/L (23-300) Urine Color Dark yellow (Yellow) Urine Appearance Cloudy H (Clear) Urine pH 6.0 (5.0-9.0) Ur Specific [place] 1.020 (1.001-1.035) Urine Protein 2+ H mg/dL (Negative) Urine Glucose (UA) Negative mg/dL (Negative) Urine Ketones 1+ H mg/dL (Negative) Ur Blood (Man) 3+ H (Negative) Urine Nitrate Negative (Negative) Urine Bilirubin Negative (Negative) Urine Urobilinogen 1.0 mg/dL (<2.0) Leukocyte Esterase Rfl 1+ H STEFAN/UL (Negative) Urine RBC 3-5 H /hpf (0-2) Urine WBC 0-5 /hpf (0-3) Ur Squamous Epith Cells Few /hpf (Few) Urine Bacteria 2+ H /hpf (None) Patient hx anesthesia problems: post op nausea/vomiting Family hx anesthesia problems: none Results Review: All pre-operative results and documents have been reviewed as part of the pre-operative evaluation. [facility] Past Medical History Medical History Renal mass, left (04/21/24) 1.4 cm indeterminate left renal mass on CT abdomen and pelvis in the ER 04/21/2024 with need for follow-up MRI or CT. Hypersomnia (~2023) Chronic thoracic back pain X-ray T-spine 02/02/2024 with diffuse degenerative disc disease and arthritis. At moderate risk for fall Colon cancer screening normal colonoscopy 2016 with recheck in 10 years. Polycythemia hemoglobin 15.6, hematocrit 48.7 on 06/30/2023. Elevated TSH (06/30/23) TSH elevated at 5.43 on 06/30/2023. Mixed hyperlipidemia cholesterol 215, triglycerides 131 with HDL excellent at 74 and LDL elevated 116 with ratio normal at 2.9 on 06/30/2023. Grieving (~06/2022) around June,. BMI 39.0-39.9,adult Arrhythmia (07/22/22) irregularly irregular . TSH normal 4.10 06/29/2022. EKG 07/22/2022 with normal sinus rhythm COVID-19 (~07/02/22) Chronic right hip pain (~2021) BMI 34.0-34.9,adult Obesity (BMI 30-39.9) Dyshidrotic eczema (~09/04/21) on the feet Tinea pedis Fungal infection of nail all of the toenails 09/04/2021 At high risk for falls Left knee pain BMI 38.0-38.9,adult BMI 37.0-37.9, adult Breast cancer screening by mammogram normal mammogram 01/08/2023 with recheck annually. Sore throat Family History Family History Father Family history of tuberculosis Family history of emphysema Family history of coronary artery disease Mother Diabetes mellitus Hypertension Grandparent Family history of malignant neoplasm of uterus Other Cerebrovascular accident Family history of allergic disorder Family history of chronic obstructive pulmonary disease Social History Social History Smoking status: Former smoker Alcohol intake: never Substance use: never Substance use type: does not use Lack of Transportation: No Lack of Food: Never True Current Housing: I Have Housing Concerned About Future Housing: No Difficulty Paying Gas/Electric Bills: No Difficulty Paying for Meds: No Currently Unemployed: No Education: High School Diploma/GED Difficulty w/ Childcare or Family Care: No Anes - Eval Final PreProcedure Day of Procedure 04/21/24 15:32 Patient weight: obese Heart: regular rate and rhythm Lungs: clear to auscultation and normal air movement Airway: Mallampati scale class II Neurological: alert and oriented Last oral intake: >/= 8 hours ASA classification: III Emergent: no Anesthetic plan: proceed Anesthesia type and monitoring: general ETT and standard monitoring Results Review: All pre-operative results and documents have been reviewed as part of the pre-operative evaluation. Patient states recently having a sleep study and is awaiting her next appointment to receive her CPAP. Informed Consent: The patient's anesthetic plan and its attendant risks and benefits were discussed with the patient/family/POA. Questions were solicited and answers provided to the satisfaction of the patient/family/POA.
--- NOTE | 2024-04-21 15:34 | WPDHPUPDATE1 ---
History and Physical Update Update Date/Time: 04/21/24 15:34 History and Physical has been reviewed, including an updated exam of the patient. There are NO changes in the patient's condition. Risks, benefits, and alternatives have been discussed and questions answered. Patient agrees to proceed with procedure.
--- NOTE | 2024-04-21 15:37 | P.CONGS_ITS ---
Assessment and Plan Assessment and plan (1) Acute appendicitis: Onset Date: ~04/21/24 Code(s): K35.80 - Unspecified acute appendicitis Status: Acute Assessment and Plan: * I have reviewed the CT and discussed the findings with the patient. She has evidence of acute appendicitis. With her timing of symptoms, I did discuss that there is a chance that the appendix is perforated. I discussed medical and surgical treatment options and patient is agreeable to proceeding with surgery. I have recommended urgent laparoscopic appendectomy, possible open. I discussed the procedure, risks, benefits, and alternatives. Questions were answered. I discussed that we would likely keep her in the hospital in the event of the appendix being perforated as well as with the findings on the CT of a possible reactive ileus. Patient has been started with Zosyn in the emergency department. Will continue this perioperatively. (2) Osteoarthritis involving multiple joints on both sides of body: Code(s): M15.9 - Polyosteoarthritis, unspecified Status: Acute (3) Essential (primary) hypertension: Code(s): I10 - Essential (primary) hypertension Status: Acute History of Present Illness Consult details Consult date: 04/21/24 Reason for consult: other (lower abdominal pain) Requesting physician: Juan Jose Hay MD Narrative: This is a 73-year-old woman who presented to the emergency department with lower abdominal pain. Her symptoms started 4 days ago. She has also been experiencing fevers. Nausea and vomiting started today as well as some looser stool. She has never had symptoms like this in the past. She did have a colonoscopy 7 years ago and is due for her next colonoscopy in 2026. Review of Systems 2 Review of Systems: All systems reviewed & are unremarkable except as noted in HPI and below Eyes: Eyes: Denies change in vision ENT: Denies hearing loss, Denies neck pain and Denies sore throat Cardiovascular: Cardiovascular: Denies chest pain and Denies dyspnea Respiratory: Respiratory: Denies cough, Denies dyspnea and Denies wheezing Gastrointestinal: Gastrointestinal: Reports as per HPI Genitourinary: Genitourinary: Denies hematuria and Denies dysuria Musculoskeletal: Musculoskeletal: Denies arthralgias, Denies joint swelling and Denies neck pain Allergic/Immunologic: Allergic/Immunologic: Denies wheezing PMFSH Past Medical History Medical History Renal mass, left (04/21/24) 1.4 cm indeterminate left renal mass on CT abdomen and pelvis in the ER 04/21/2024 with need for follow-up MRI or CT. Hypersomnia (~2023) Chronic thoracic back pain X-ray T-spine 02/02/2024 with diffuse degenerative disc disease and arthritis. At moderate risk for fall Colon cancer screening normal colonoscopy 2016 with recheck in 10 years. Polycythemia hemoglobin 15.6, hematocrit 48.7 on 06/30/2023. Elevated TSH (06/30/23) TSH elevated at 5.43 on 06/30/2023. Mixed hyperlipidemia cholesterol 215, triglycerides 131 with HDL excellent at 74 and LDL elevated 116 with ratio normal at 2.9 on 06/30/2023. Grieving (~06/2022) around June,. BMI 39.0-39.9,adult Arrhythmia (07/22/22) irregularly irregular . TSH normal 4.10 06/29/2022. EKG 07/22/2022 with normal sinus rhythm COVID-19 (~07/02/22) Chronic right hip pain (~2021) BMI 34.0-34.9,adult Obesity (BMI 30-39.9) Dyshidrotic eczema (~09/04/21) on the feet Tinea pedis Fungal infection of nail all of the toenails 09/04/2021 At high risk for falls Left knee pain BMI 38.0-38.9,adult BMI 37.0-37.9, adult Breast cancer screening by mammogram normal mammogram 01/08/2023 with recheck annually. Sore throat Family History Family History Father Family history of tuberculosis Family history of emphysema Family history of coronary artery disease Mother Diabetes mellitus Hypertension Grandparent Family history of malignant neoplasm of uterus Other Cerebrovascular accident Family history of allergic disorder Family history of chronic obstructive pulmonary disease Social History Social History Smoking status: Former smoker Alcohol intake: never Substance use: never Substance use type: does not use Lack of Transportation: No Lack of Food: Never True Current Housing: I Have Housing Concerned About Future Housing: No Difficulty Paying Gas/Electric Bills: No Difficulty Paying for Meds: No Currently Unemployed: No Education: High School Diploma/GED Difficulty w/ Childcare or Family Care: No Meds Home Medications and Allergies Home Medications ?Medication ?Instructions ?Recorded ?Confirmed ?Type cyanocobalamin (vitamin B-12) 500 500 mcg PO DAILY 03/23/19 04/21/24 History mcg tablet (Vitamin B-12) calcium carbonate (Calcium 600) 600 mg PO BID 11/15/19 04/21/24 History fexofenadine 180 mg tablet 180 mg PO DAILY PRN allergy 11/15/19 04/21/24 History (Allergy Relief (fexofenadine)) cholecalciferol (vitamin D3) 50 2,000 unit PO DAILY 11/05/20 04/21/24 History mcg (2,000 unit) capsule lisinopril 40 mg tablet 40 mg PO DAILY #90 tabs 06/10/23 04/21/24 Rx omeprazole 20 mg capsule,delayed 20 mg PO DAILY #90 caps 06/10/23 04/21/24 Rx release celecoxib 200 mg capsule (Celebrex) 200 mg PO DAILY PRN pain #90 caps 02/21/24 04/21/24 Rx Allergies Allergy/AdvReac Type Severity Reaction Status Date / Time adhesive tape Allergy Mild Blister Verified 04/21/24 15:01 menthol Allergy Mild Unknown Verified 04/21/24 15:01 adhesive Allergy Unknown Blister Verified 04/21/24 15:01 bacitracin (From Neosporin AdvReac Itching Verified 04/21/24 15:01 ([id number])) neomycin (From Neosporin AdvReac Itching Verified 04/21/24 15:01 ([id number])) polymyxin B (From Neosporin AdvReac Itching Verified 04/21/24 15:01 ([id number])) Vital Signs Vital Signs - 24 hr 04/21/24 11:45 04/21/24 11:55 04/21/24 12:18 Temperature 97.2 F L 98.2 F Pulse Rate 108 H 101 H 101 H Respiratory Rate 16 20 20 Blood Pressure 158/92 H 139/87 127/86 Pulse Oximetry 98 98 98 04/21/24 14:27 Temperature 98.7 F Pulse Rate 103 H Respiratory Rate 20 Blood Pressure 137/78 Pulse Oximetry 97 Exam 2 Const: General: alert; No acute distress Orientation/consciousness: patient oriented x3 Limitations: no limitations HENMT: Head: normocephalic and atraumatic Ears: hearing grossly normal bilaterally Face/Nose/Sinus: Normal external nose present and Normal nares present Mouth: Yes Normal oral and palatal mucosa present and Yes moist mucous membranes Eyes: General: appearance normal, both eyes and all related structures C onjunctivae: conjunctivae normal Sclera: sclerae normal Pupils: Equal, round and reactive pupils present EOM: EOMs intact bilaterally Neck: Neck: normal visual inspection, full ROM, no lymphadenopathy, supple and no JVD Lymphatic: no lymphadenopathy noted Chest: Chest palpation & inspection: normal inspection of the chest Resp: Effort & Inspection: normal respiratory effort and able to speak in complete sentences Auscultation: clear to auscultation bilaterally P ercussion: percussion normal Cardio: Jugular venous distension: no JVD Rate: regular rate Rhythm: r egular rhythm Heart sounds: S1 normal heart sound present and S2 normal heart sound present Peripheral pulses: Peripheral pulses 2+ throughout GI: Inspection: distended GI Palp: Yes Soft to palpation, Yes Tenderness to palpation present (GI) (Right lower quadrant and left lower quadrant) and Yes Guarding due to palpation present (GI) (Right lower quadrant) Auscultation: n ormal bowel sounds : General: Yes no CVA tenderness Back/Spine/Pelvis: Back: no CVA tenderness Skin: General skin exam: normal color and dry skin Neuro: General: patient oriented x3, gait normal, moves all extremities, no focal motor deficits and CN's II-XI intact bilaterally Cranial nerves: Yes Equal, round and reactive pupils present Speech: normal speech Extrem: General: normal to inspection and capillary refill normal Results Labs 04/21/24 11:57 04/21/24 11:57 Labs: Abnormal lab results 04/21/24 04/21/24 Range/Units 11:57 12:20 Hgb 15.4 H (12.0-15.0) g/dL Neut % (Auto) 84.5 H (45.5-73.1) % Lymph % (Auto) 7.6 L (18.3-44.2) % Baso % (Auto) 0.1 L (0.2-1.2) % Lymph # (Auto) 0.52 L (0.9-3.2) K/mm3 Sodium 133 L (137-145) mmol/L BUN 30 H (7-17) mg/dL Glucose 131 H (65-110) mg/dL Total Bilirubin 1.5 H (0.2-1.3) mg/dL Urine Appearance Cloudy H (Clear) Urine Protein 2+ H (Negative) mg/dL Urine Ketones 1+ H (Negative) mg/dL Ur Blood (Man) 3+ H (Negative) Leukocyte Esterase Rfl 1+ H (Negative) STEFAN/UL Urine RBC 3-5 H (0-2) /hpf Urine Bacteria 2+ H (None) /hpf Diabetes panel 04/21/24 Range/Units 11:57 Sodium 133 L (137-145) mmol/L Potassium 3.8 (3.4-5.0) mmol/L Chloride 101 (98-107) mmol/L Carbon Dioxide 26 (22-30) mmol/L BUN 30 H (7-17) mg/dL Creatinine 0.90 (0.7-1.0) mg/dL Glucose 131 H (65-110) mg/dL Calcium 9.6 (8.4-10.2) mg/dL AST 26 (14-36) U/L ALT 16 (6-35) U/L Alkaline Phosphatase 75 (38-126) U/L Total Protein 7.0 (6.3-8.2) g/dL Albumin 3.9 (3.5-5.1) g/dL Calcium panel 04/21/24 Range/Units 11:57 Calcium 9.6 (8.4-10.2) mg/dL Albumin 3.9 (3.5-5.1) g/dL Pituitary panel 04/21/24 Range/Units 11:57 Sodium 133 L (137-145) mmol/L Potassium 3.8 (3.4-5.0) mmol/L Chloride 101 (98-107) mmol/L Carbon Dioxide 26 (22-30) mmol/L BUN 30 H (7-17) mg/dL Creatinine 0.90 (0.7-1.0) mg/dL Glucose 131 H (65-110) mg/dL Calcium 9.6 (8.4-10.2) mg/dL Adrenal panel 04/21/24 Range/Units 11:57 Sodium 133 L (137-145) mmol/L Potassium 3.8 (3.4-5.0) mmol/L Chloride 101 (98-107) mmol/L Carbon Dioxide 26 (22-30) mmol/L BUN 30 H (7-17) mg/dL Creatinine 0.90 (0.7-1.0) mg/dL Glucose 131 H (65-110) mg/dL Calcium 9.6 (8.4-10.2) mg/dL Total Bilirubin 1.5 H (0.2-1.3) mg/dL AST 26 (14-36) U/L ALT 16 (6-35) U/L Alkaline Phosphatase 75 (38-126) U/L Total Protein 7.0 (6.3-8.2) g/dL Albumin 3.9 (3.5-5.1) g/dL All other labs normal. Imaging Additional studies: ITS Impressions Abdomen/Pelvis CT 04/21/24 12:57 IMPRESSION: 1. Dilated appendix with surrounding inflammatory changes including edematous cecal wall thickening at the appendiceal orifice consistent with acute appendicitis. Small collection of nonloculated appearing fluid near the appendix but no organized abscess or free intraperitoneal gas. 2. Multiple dilated loops of small bowel which appears to gradually decrease caliber distally in the right lower quadrant where there is some wall thickening of the small bowel but no discrete transition point and would favor enteritis reactive ileus related to acute appendicitis over a bowel obstruction. 3. Some degree of intestinal malrotation but without evident volvulus. 4. 1.4 cm indeterminate left renal lesion which could represent a statistically most likely complex mixed/proteinaceous cyst versus less likely solid enhancing renal cell carcinoma. Recommend further evaluation with follow-up pre and postcontrast MRI or CT. 5. Nonobstructing 2 mm left renal stone. 6. Cholelithiasis.
[2024-04-21] MEDS: BUPIVACAINE/EPINEPHRINE 0.5% 10 ML VIAL 30 ML INFILTRATE (16:15)
[2024-04-21] MEDS: LACTATED RINGERS 1,000 ML 30 ML IV CONT (16:30)
--- NOTE | 2024-04-21 16:40 | P.OP_ITS ---
Procedure Note - Detailed Date of Procedure 04/21/24 Pre-op Diagnosis appendicitis Post-op Diagnosis Other (Perforated appendicitis with abscess) Procedure Performed 1. Laparoscopic appendectomy 2. Laparoscopic drainage of intra-abdominal abscess Surgeon Mode Castro, Anesthesia General and Local (0.5% bupivicaine with epinephrine) Indications This is a 73-year-old woman who presented to the emergency department with lower abdominal pain that started 4 days prior. She was also experiencing fevers, n ausea, and vomiting. Workup in the emergency department showed evidence of acute appendicitis on CT. There was also signs of potential reactive inflammation around the cecum and small bowel and possible secondary ileus. Her white blood count was normal and she was afebrile in the ED. discussions were made with the patient about treatment options and decision was made to proceed with laparoscopic appendectomy, possible open. Findings Laparoscopic appendectomy and laparoscopic drainage of intra-abdominal abscess was performed. Upon inspecting the abdomen laparoscopically, much of the small bowel appeared slightly dilated. She had several loops of small bowel overlying the area where the appendix was suspected. After carefully mobilizing these loops of small bowel I did enter into an abscess that was probably about 2-3 cm in size. I drained this abscess using the suction candy polisher. The cecum was in a slightly atypical position being slightly more midline. After mobilizing the anterior loops of small bowel I was able to identify the cecum and appendix. The appendix appeared perforated with the associated abscess. The base of the appendix appeared somewhat inflamed and indurated but still appeared healthy and viable. The appendix was removed and sent to the lab for pathology. I irrigated the abdominal cavity with about 1 L of sterile saline. No other intra-abdominal abnormalities were noted. Description of Procedure Procedure as well as risks, benefits, and alternatives were explained to the patient. The patient agreed to proceed. Written consent was obtained and placed in chart prior to procedure. The patient was brought back to surgical suite. She was placed supine on operating table. Time-out was done to confirm the patient and procedure. The patient was then intubated by the Anesthesia Department. Her abdomen was prepped and draped in sterile fashion using chlorhexidine prep. A 5 mm incision was made just to the left of the patient's umbilicus and a 5 mm Optiview trocar was advanced through the abdominal layers under direct visualization. Once inside the peritoneal cavity, carbon dioxide insufflation was used to create a pneumoperitoneum. The camera was inserted and the abdomen was inspected. No immediate abnormalities were identified. The patient was then placed in slight Trendelenburg position and rotated to the left. A 5 mm incision was made in the suprapubic region in midline and a 5 mm trocar was inserted under direct visualization. A 12 mm incision was made in the left lower quadrant and a 12 mm trocar was inserted under direct visualization. The right lower quadrant was carefully inspected. There were several loops of small bowel overlying the cecum. These were gently manipulated and mobilized away from the cecum and then an abscess was identified. The abscess was drained with the suction candy polisher. The cecum was identified and then this was traced back to the appendix. The appendix was identified and grasped at the mesoappendix and lifted anteriorly. Careful blunt dissection was carried out at the base of the appendix through the mesoappendix using a [place] grasper. An Endo-LIA 45 mm blue load stapler was then advanced across the base of the appendix and clamped and fired. A white reload was then clamped across the mesoappendix and fired. This freed up our appendix completely. It was then placed in an EndoCatch bag and removed through the left lower quadrant port. The staple lines were then inspected. Hemostasis appeared adequate and the staple lines appeared secure. The area was then irrigated with sterile saline. The pelvis was then carefully inspected and irrigated with sterile deonte ine as well and the remainder of the abdomen was carefully inspected. The patient was then flattened out in bed. One final inspection was made around the abdominal cavity and no other abnormalities were seen. The left lower quadrant port was removed and a Scotty-Lauri cone was used to approximate the fascia with an 0 Vicryl simple interrupted suture. The remaining ports were then removed under direct visualization. The camera was removed and the pneumoperitoneum was released. 0.5% bupivacaine with epinephrine was infiltrated locally around each of the incisions. The skin of the incisions was then approximated using 4-0 Monocryl subcuticular suture and Exofin glue was applied on top. The patient was then awakened from anesthesia, extubated, and transferred to Recovery. Estimated Blood Loss 10 Urine Output 300 Pathology Yes (Appendix) Complications No immediate complications Condition Stable Disposition Floor [facility] Billing Surgery - Charge Forward: Surgery Billing
[2024-04-21] MEDS: fentaNYL CITRATE INJ (*CRX) 100 MCG/2 ML VIAL 25 MCG IV PUSH ×4 (16:47→17:05)
[2024-04-21] MEDS: SODIUM CHLORIDE 0.9% IV 1,000 ML 125 ML IV CONT (18:17)
[2024-04-21] MEDS: HYDROcodone/acetaminophen (*CRX) 5-325 MG TABLET 1 TAB PO (21:17)
[2024-04-22] VITALS (7 sets, daily range): BP systolic 107–135; BP diastolic 62–79; PULSE 76–97; RESP 16–20; TEMP 36.1–37.6; O2SAT 93–99
[2024-04-22] MEDS: HYDROcodone/acetaminophen (*CRX) 7.5-325 MG TABLET 1 TAB PO ×2 (02:41→18:43)
[2024-04-22] MEDS: PIPERACILLN/TAZ 3.375GM/NS50ML 3.375 GM/50 ML BAG IVPB ×3 (05:56→18:43)
[2024-04-22 06:01] LABS: Hematocrit 41.2 % (37.0-47.0); Hemoglobin 13.6 g/dL (12.0-15.0); Mean Corpuscular Hemoglobin 28.8 pg (26-34); Mean Corpuscular Volume 87.3 fl (80-100); Mean Platelet Volume 10.1 fl (7.4-10.4); Platelet Count Result 238 k/mm3 (150-375); Red Blood Count 4.72 M/mm3 (4.2-5.4); White Blood Count 7.6 K/mm3 (4.5-10.0)
[2024-04-22 06:08] LABS: Anion Gap 1 mmol/L (4-12); Blood Urea Nitrogen 22 mg/dL (7-17); Calcium 8.7 mg/dL (8.4-10.2); Carbon Dioxide 29 mmol/L (22-30); Chloride 102 mmol/L (98-107); Estimated Glomerular Filt Rate > 60; Glucose 119 mg/dL (65-110); Sodium 132 mmol/L (137-145)
[2024-04-22] MEDS: ENOXAPARIN 40 MG/0.4 ML SYRINGE SUB-Q (09:30)
[2024-04-22] MEDS: lisinopriL 20 MG TABLET 40 MG PO (09:30)
[2024-04-22] MEDS: DOCUSATE SODIUM 100 MG CAPSULE PO (09:30)
[2024-04-22] MEDS: HYDROcodone/acetaminophen (*CRX) 5-325 MG TABLET 1 TAB PO (09:35)
--- NOTE | 2024-04-22 10:44 | P.PNGS_ITS ---
Progress Note: A&P Assessment and Plan (1) Acute appendicitis: Onset Date: ~04/21/24 Qualifiers: Acute appendicitis type: with generalized peritonitis Appendicitis gangrene presence: without gangrene Appendicitis perforation presence: with perforation Appendicitis abscess presence: with abscess Qualified Code(s): K 35.211 - Acute appendicitis with generalized peritonitis, with perforation and abscess Code(s): K35.80 - Unspecified acute appendicitis Status: Acute Assessment and Plan: * Patient is not tolerating her diet and will now need to be backed down to clear liquids again. Will have to consider NG placement if she starts vomiting. * Continue Zosyn * Await return of bowel function * Increase activity as tolerated Subjective Subjective Date/Time Seen: 04/22/24 10:44 Interval history: Patient nauseated and bloated after eating solid diet for breakfast. She was supposed to be on clear liquids but Hospitalist advanced her to regular. No flatus. No BM. Still having some abdominal pain. Exam GI: Inspection: distended and incision (intact with glue) GI Palp: Yes Tenderness to palpation present (GI) (incisional and RLQ) and No Guarding due to palpation present (GI) Objective Data Vital Signs Vital Signs: Vital Signs - 24 hr 04/21/24 11:45 04/21/24 11:55 04/21/24 12:18 Temperature 97.2 F L 98.2 F Pulse Rate 108 H 101 H 101 H Respiratory Rate 16 20 20 Blood Pressure 158/92 H 139/87 127/86 Pulse Oximetry 98 98 98 Oxygen Delivery Oxygen Flow Rate 04/21/24 14:27 04/21/24 16:30 04/21/24 16:45 Temperature 98.7 F 97.5 F L Pulse Rate 103 H 97 88 Respiratory Rate 20 16 16 Blood Pressure 137/78 113/74 134/85 Pulse Oximetry 97 99 100 Oxygen Delivery Simple Face Mask Simple Face Mask Oxygen Flow Rate 6 6 04/21/24 17:00 04/21/24 17:15 04/21/24 17:25 Temperature Pulse Rate 82 79 90 Respiratory Rate 14 14 14 Blood Pressure 144/82 H 133/90 138/85 Pulse Oximetry 100 94 95 Oxygen Delivery Room Air Room Air Room Air Oxygen Flow Rate 04/21/24 17:54 04/21/24 17:55 04/21/24 18:13 Temperature 98.2 F 98.5 F Pulse Rate 92 92 Respiratory Rate 16 16 Blood Pressure 146/81 H 143/95 H Pulse Oximetry 96 95 Oxygen Delivery Room Air Oxygen Flow Rate 04/21/24 19:45 04/21/24 23:13 04/22/24 06:00 Temperature 97.3 F L 97.3 F L 97.0 F L Pulse Rate 92 87 79 Respiratory Rate 16 20 16 Blood Pressure 127/81 119/66 110/64 Pulse Oximetry 95 94 96 Oxygen Delivery Oxygen Flow Rate 04/22/24 07:13 Temperature 98.0 F Pulse Rate 76 Respiratory Rate 20 Blood Pressure 115/62 Pulse Oximetry 98 Oxygen Delivery Oxygen Flow Rate Intake/Output Intake/Output: Intake & Output 04/19/24 04/20/24 04/21/24 04/22/24 23:59 23:59 23:59 23:59 Intake Total 300 600 Output Total 300 Balance 0 600 Meds/Results Medications: Active Medications Generic Name Dose Route Start Last Admin Trade Name Freq PRN Reason Stop Dose Admin Acetaminophen 500 mg 04/21/24 17:28 Acetaminophen 500 Mg Tablet PO Q6H PRN Pain Rated 1-3 Hydrocodone Bitart/Acetaminophen 1 tab 04/21/24 17:28 04/22/24 09:35 Hydrocodone/Acetaminophen (*Crx) 5-325 Mg Tablet PO 1 tab Q4H PRN Administration Pain Rated 4-6 Hydrocodone Bitart/Acetaminophen 1 tab 04/21/24 17:28 04/22/24 02:41 Hydrocodone/Acetaminophen (*Crx) 7.5-325 Mg Tablet PO 1 tab Q4H PRN Administration Pain Rated 7-10 Celecoxib 200 mg 04/22/24 00:01 Celecoxib 200 Mg Capsule PO DAILY PRN pain Cyclobenzaprine HCl 5 mg 04/22/24 00:03 Cyclobenzaprine Hcl 5 Mg Tablet PO Q8H PRN Muscle Spasm Docusate Sodium 100 mg 04/22/24 09:00 04/22/24 09:30 Docusate Sodium 100 Mg Capsule PO 100 mg DAILY REGINO Administration Enoxaparin Sodium 40 mg 04/22/24 09:00 04/22/24 09:30 Enoxaparin 40 Mg/0.4 Ml Syringe SUB-Q 40 mg DAILY REGINO Administration Sodium Chloride 1,000 mls @ 125 mls/hr 04/21/24 14:00 04/21/24 18:17 Normal Saline Iv IV CONT 125 mls/hr .Q8H REGINO Administration Ibuprofen 800 mg in 200 mls @ 400 mls/hr 04/21/24 17:28 Caldolor 800 Mg/200 Ml IVPB Q6H PRN Breakthrough Pain Rated 1-3 or NPO Piperacillin/Tazobactam/Dextrose 3.375 gm in 50 mls @ 100 mls/hr 04/21/24 19:00 04/22/24 07:00 Zosyn 3.375 Gm/Ns 50 Ml IVPB Infused Q6HR RE[facility]O Infusion Lisinopril 40 mg 04/22/24 09:00 04/22/24 09:30 Lisinopril 20 Mg Tablet PO 40 mg DAILY REGINO Administration Miscellaneous Information 0 each 04/22/24 00:01 Celecoxib Duplicate With Ibuprofen Iv D/C One XX 05/22/24 00:00 CLARIFY REGINO Morphine Sulfate 2 mg 04/21/24 17:28 Morphine Sulfate (*Crx) 2 Mg/Ml Inj IV PUSH Q2H PRN Breakthrough Pain Rated 4-6 or NPO Morphine Sulfate 4 mg 04/21/24 17:28 Morphine Sulfate (*Crx) 4 Mg/Ml Inj IV PUSH Q2H PRN Breakthrough Pain Rated 7-10 or NPO Ondansetron HCl 4 mg 04/21/24 17:28 Ondansetron Inj 4 Mg/2 Ml Vial IV PUSH Q4H PRN Nausea And Vomiting Radiology Results: ITS Impressions Abdomen/Pelvis CT 04/21/24 12:57 IMPRESSION: 1. Dilated appendix with surrounding inflammatory changes including edematous cecal wall thickening at the appendiceal orifice consistent with acute appendicitis. Small collection of nonloculated appearing fluid near the appendix but no organized abscess or free intraperitoneal gas. 2. Multiple dilated loops of small bowel which appears to gradually decrease caliber distally in the right lower quadrant where there is some wall thickening of the small bowel but no discrete transition point and would favor enteritis reactive ileus related to acute appendicitis over a bowel obstruction. 3. Some degree of intestinal malrotation but without evident volvulus. 4. 1.4 cm indeterminate left renal lesion which could represent a statistically most likely complex mixed/proteinaceous cyst versus less likely solid enhancing renal cell carcinoma. Recommend further evaluation with follow-up pre and postcontrast MRI or CT. 5. Nonobstructing 2 mm left renal stone. 6. Cholelithiasis. Labs Labs: Laboratory Results - last 24 hr 04/21/24 04/21/24 04/22/24 11:57 12:20 05:35 WBC 6.9 7.6 RBC 5.38 4.72 Hgb 15.4 H 13.6 Hct 46.1 41.2 MCV 85.7 87.3 MCH 28.6 28.8 MCHC 33.4 33.0 RDW 13.9 14.0 Plt Count 234 238 MPV 10.0 10.1 Immature Gran % (Auto) 0.3 Neut % (Auto) 84.5 H Lymph % (Auto) 7.6 L [place] % (Auto) 6.3 Eos % (Auto) 1.2 Baso % (Auto) 0.1 L Lymph # (Auto) 0.52 L [place] # (Auto) 0.4 Eos # (Auto) 0.1 Baso # (Auto) 0.0 Abs Immat Gran (auto) 0.02 Absolute Neuts (auto) 5.8 Absolute Nucleated RBC 0.000 Nucleated RBC % 0.0 Sodium 133 L 132 L Potassium 3.8 4.0 Chloride 101 102 Carbon Dioxide 26 29 Anion Gap 6 1 L BUN 30 H 22 H Creatinine 0.90 0.90 Estim Creat Clear Calc Not Reportable Not Reportable Estimated GFR > 60 > 60 Glucose 131 H 119 H Calcium 9.6 8.7 Total Bilirubin 1.5 H AST 26 ALT 16 Alkaline Phosphatase 75 Total Protein 7.0 Albumin 3.9 Lipase 59 Urine Color Dark yellow Urine Appearance Cloudy H Urine pH 6.0 Ur Specific [place] 1.020 Urine Protein 2+ H Urine Glucose (UA) Negative Urine Ketones 1+ H Ur Blood (Man) 3+ H Urine Nitrate Negative Urine Bilirubin Negative Urine Urobilinogen 1.0 Leukocyte Esterase Rfl 1+ H Urine RBC 3-5 H Urine WBC 0-5 Ur Squamous Epith Cells Few Urine Bacteria 2+ H
--- NOTE | 2024-04-22 11:25 | P.PNIM_ITS ---
Progress Note: A&P Assessment and Plan (1) Appendicitis: Code(s): K37 - Unspecified appendicitis Status: Acute Assessment and Plan: IV Zosyn q.6 IV fluids Blood cultures pending 04/21- Laparoscopic appendectomy Laparoscopic drainage of intra-abdominal abscess -surgery is following (2) UTI (urinary tract infection): Code(s): N39.0 - Urinary tract infection, site not specified Status: Acute Assessment and Plan: IV Zosyn Cultured sensitivities pending (3) Enteritis: Code(s): K52.9 - Noninfective gastroenteritis and colitis, unspecified Status: Acute Assessment and Plan: IV Zosyn she was on clear liquids- not much appetite at all (4) Hyponatremia: Code(s): E87.1 - Hypo-osmolality and hyponatremia Status: Acute Assessment and Plan: IV fluids Repeat BMP in the morning (5) Intestinal malrotation: Code(s): 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 Status: Acute Assessment and Plan: Some degree of intestinal malrotation but without evident volvulus Non peritoneal (6) Total bilirubin, elevated: Code(s): R17 - Unspecified jaundice Status: Acute Assessment and Plan: LFTs within normal limits (7) Kidney stone on left side: Code(s): N20.0 - Calculus of kidney Status: Acute Assessment and Plan: 2 mm stone should be able to pass IV fluid fluids for hydration (8) Renal lesion: Code(s): N28.9 - Disorder of kidney and ureter, unspecified Status: Acute Assessment and Plan: 1.4 cm indeterminate left renal lesion which could represent a statistically most likely complex mixed/proteinaceous cyst versus less likely solid enhancing renal cell carcinoma. Recommend further evaluation with follow-up pre and postcontrast MRI or CT. Plan Incidental findings of gallstones on CT, no intervention needed Time Spent With Patient Time with patient: Greater than 35 minutes Subjective Date/time seen: 04/22/24 11:25 Interval history: Pt was on clear liquid- per surgery. No hospitalist advanced her diet this am as care is driven per surgery recommendations. She is not moving much as her abd hurts. She is on clear diet still/again- encouraged to get out of bed. Review of Systems Review of Systems: 12 systems were reviewed and are negativ e except for as per HPI. Exam Narrative: General: well appearing, appears stated age. HEENT: normocephalic, atraumatic. Mucous membranes moist. EOMI, PERRLA, bilateral sclera anicteric, no conjunctival injection. Neck supple without JVD, lymphadenopathy, or bruit. Respiratory: clear to ascultation bilaterally. No rales/rhonic/wheezes. Cardiovascular: Regular rate and rhythm, normal S1-S2 upon ascultation. No murmurs, rubs, or clicks. PMI is nondisplaced, capillary refill less than 3 second. Abdomen: Distended, soft, laparoscopic sites Dermabond Extremities: No cyanosis, clubbing, or edema present. Pulses are palpable 2/2. Active ROM to all four extremities. Neuro: Alert and orientated x 4. PERRLA. Cranial nerves 2-12 intact without focal deficit. Skin: Warm, dry, and intact, without rash, erythema, or lesion. Psych: pleasant, cooperative, normal speech, normal affect, no hallucinations, no dysarthia Objective Data Vital Signs Vital Signs: Vital Signs - 24 hr 04/21/24 11:45 04/21/24 11:55 04/21/24 12:18 Temperature 97.2 F L 98.2 F Pulse Rate 108 H 101 H 101 H Respiratory Rate 16 20 20 Blood Pressure 158/92 H 139/87 127/86 Pulse Oximetry 98 98 98 Oxygen Delivery Oxygen Flow Rate 04/21/24 14:27 04/21/24 16:30 04/21/24 16:45 Temperature 98.7 F 97.5 F L Pulse Rate 103 H 97 88 Respiratory Rate 20 16 16 Blood Pressure 137/78 113/74 134/85 Pulse Oximetry 97 99 100 Oxygen Delivery Simple Face Mask Simple Face Mask Oxygen Flow Rate 6 6 04/21/24 17:00 04/21/24 17:15 04/21/24 17:25 Temperature Pulse Rate 82 79 90 Respiratory Rate 14 14 14 Blood Pressure 144/82 H 133/90 138/85 Pulse Oximetry 100 94 95 Oxygen Delivery Room Air Room Air Room Air Oxygen Flow Rate 04/21/24 17:54 04/21/24 17:55 04/21/24 18:13 Temperature 98.2 F 98.5 F Pulse Rate 92 92 Respiratory Rate 16 16 Blood Pressure 146/81 H 143/95 H Pulse Oximetry 96 95 Oxygen Delivery Room Air Oxygen Flow Rate 04/21/24 19:45 04/21/24 23:13 04/22/24 06:00 Temperature 97.3 F L 97.3 F L 97.0 F L Pulse Rate 92 87 79 Respiratory Rate 16 20 16 Blood Pressure 127/81 119/66 110/64 Pulse Oximetry 95 94 96 Oxygen Delivery Oxygen Flow Rate 04/22/24 07:13 Temperature 98.0 F Pulse Rate 76 Respiratory Rate 20 Blood Pressure 115/62 Pulse Oximetry 98 Oxygen Delivery Oxygen Flow Rate Intake/Output Intake/Output: Intake & Output 04/19/24 04/20/24 04/21/24 04/22/24 23:59 23:59 23:59 23:59 Intake Total 300 600 Output Total 300 Balance 0 600 Meds/Results Medications: Active Medications Generic Name Dose Route Start Last Admin Trade Name Freq PRN Reason Stop Dose Admin Acetaminophen 500 mg 04/21/24 17:28 Acetaminophen 500 Mg Tablet PO Q6H PRN Pain Rated 1-3 Hydrocodone Bitart/Acetaminophen 1 tab 04/21/24 17:28 04/22/24 09:35 Hydrocodone/Acetaminophen (*Crx) 5-325 Mg Tablet PO 1 tab Q4H PRN Administration Pain Rated 4-6 Hydrocodone Bitart/Acetaminophen 1 tab 04/21/24 17:28 04/22/24 02:41 Hydrocodone/Acetaminophen (*Crx) 7.5-325 Mg Tablet PO 1 tab Q4H PRN Administration Pain Rated 7-10 Celecoxib 200 mg 04/22/24 00:01 Celecoxib 200 Mg Capsule PO DAILY PRN pain Cyclobenzaprine HCl 5 mg 04/22/24 00:03 Cyclobenzaprine Hcl 5 Mg Tablet PO Q8H PRN Muscle Spasm Docusate Sodium 100 mg 04/22/24 09:00 04/22/24 09:30 Docusate Sodium 100 Mg Capsule PO 100 mg DAILY REGINO Administration Enoxaparin Sodium 40 mg 04/22/24 09:00 04/22/24 09:30 Enoxaparin 40 Mg/0.4 Ml Syringe SUB-Q 40 mg DAILY REGINO Administration Sodium Chloride 1,000 mls @ 100 mls/hr 04/21/24 14:00 04/21/24 18:17 Normal Saline Iv IV CONT 125 mls/hr .Q10H REGINO Administration Ibuprofen 800 mg in 200 mls @ 400 mls/hr 04/21/24 17:28 Caldolor 800 Mg/200 Ml IVPB Q6H PRN Breakthrough Pain Rated 1-3 or NPO Piperacillin/Tazobactam/Dextrose 3.375 gm in 50 mls @ 100 mls/hr 04/21/24 19:00 04/22/24 07:00 Zosyn 3.375 Gm/Ns 50 Ml IVPB Infused Q6HR [facility] Infusion Lisinopril 40 mg 04/22/24 09:00 04/22/24 09:30 Lisinopril 20 Mg Tablet PO 40 mg DAILY [facility] Administration Miscellaneous Information 0 each 04/22/24 00:01 Celecoxib Duplicate With Ibuprofen Iv D/C One XX 05/22/24 00:00 CLARIFY [facility] Morphine Sulfate 2 mg 04/21/24 17:28 Morphine Sulfate (*Crx) 2 Mg/Ml Inj IV PUSH Q2H PRN Breakthrough Pain Rated 4-6 or NPO Morphine Sulfate 4 mg 04/21/24 17:28 Morphine Sulfate (*Crx) 4 Mg/Ml Inj IV PUSH Q2H PRN Breakthrough Pain Rated 7-10 or NPO Ondansetron HCl 4 mg 04/21/24 17:28 Ondansetron Inj 4 Mg/2 Ml Vial IV PUSH Q4H PRN Nausea And Vomiting Radiology Results: ITS Impressions Abdomen/Pelvis CT 04/21/24 12:57 IMPRESSION: 1. Dilated appendix with surrounding inflammatory changes including edematous cecal wall thickening at the appendiceal orifice consistent with acute appendicitis. Small collection of nonloculated appearing fluid near the appendix but no organized abscess or free intraperitoneal gas. 2. Multiple dilated loops of small bowel which appears to gradually decrease caliber distally in the right lower quadrant where there is some wall thickening of the small bowel but no discrete transition point and would favor enteritis reactive ileus related to acute appendicitis over a bowel obstruction. 3. Some degree of intestinal malrotation but without evident volvulus. 4. 1.4 cm indeterminate left renal lesion which could represent a statistically most likely complex mixed/proteinaceous cyst versus less likely solid enhancing renal cell carcinoma. Recommend further evaluation with follow-up pre and postcontrast MRI or CT. 5. Nonobstructing 2 mm left renal stone. 6. Cholelithiasis. Labs Labs: Laboratory Results - last 24 hr 04/21/24 04/21/24 04/22/24 11:57 12:20 05:35 WBC 6.9 7.6 RBC 5.38 4.72 Hgb 15.4 H 13.6 Hct 46.1 41.2 MCV 85.7 87.3 MCH 28.6 28.8 MCHC 33.4 33.0 RDW 13.9 14.0 Plt Count 234 238 MPV 10.0 10.1 Immature Gran % (Auto) 0.3 Neut % (Auto) 84.5 H Lymph % (Auto) 7.6 L [place] % (Auto) 6.3 Eos % (Auto) 1.2 Baso % (Auto) 0.1 L Lymph # (Auto) 0.52 L [place] # (Auto) 0.4 Eos # (Auto) 0.1 Baso # (Auto) 0.0 Abs Immat Gran (auto) 0.02 Absolute Neuts (auto) 5.8 Absolute Nucleated RBC 0.000 Nucleated RBC % 0.0 Sodium 133 L 132 L Potassium 3.8 4.0 Chloride 101 102 Carbon Dioxide 26 29 Anion Gap 6 1 L BUN 30 H 22 H Creatinine 0.90 0.90 Estim Creat Clear Calc Not Reportable Not Reportable Estimated GFR > 60 > 60 Glucose 131 H 119 H Calcium 9.6 8.7 Total Bilirubin 1.5 H AST 26 ALT 16 Alkaline Phosphatase 75 Total Protein 7.0 Albumin 3.9 Lipase 59 Urine Color Dark yellow Urine Appearance Cloudy H Urine pH 6.0 Ur Specific [place] 1.020 Urine Protein 2+ H Urine Glucose (UA) Negative Urine Ketones 1+ H Ur Blood (Man) 3+ H Urine Nitrate Negative Urine Bilirubin Negative Urine Urobilinogen 1.0 Leukocyte Esterase Rfl 1+ H Urine RBC 3-5 H Urine WBC 0-5 Ur Squamous Epith Cells Few Urine Bacteria 2+ H Quality VTE Prophylaxis VTE prophylaxis: mechanical ordered and pharmacologic ordered
[2024-04-23] MEDS: PIPERACILLN/TAZ 3.375GM/NS50ML 3.375 GM/50 ML BAG IVPB ×4 (00:04→17:20)
[2024-04-23 05:38] LABS: Basophils Percent Auto 0.3 % (0.2-1.2); Eosinophils Absolute Auto 0.4 K/mm3 (0-0.3); Eosinophils Percent Auto 6.3 % (0-4.4); Hematocrit 40.8 % (37.0-47.0); Hemoglobin 13.5 g/dL (12.0-15.0); Immature Granulocyte Absolute 0.02 K/mm3 (0.00-0.031); Immature Granulocyte Percent A 0.3 % (0-0.5); Lymphocytes Absolute Auto 1.06 K/mm3 (0.9-3.2); Lymphocytes Percent Auto 15.6 % (18.3-44.2); Mean Corpuscular HGB Conc 33.1 g/dl (32-36); Mean Corpuscular Hemoglobin 29.1 pg (26-34); Mean Corpuscular Volume 87.9 fl (80-100); Mean Platelet Volume 9.7 fl (7.4-10.4); Monocytes Absolute Auto 0.6 K/mm3 (0.1-0.6); Neutrophils Absolute Auto 4.7 K/mm3 (1.3-6.7); Neutrophils Percent Auto 68.5 % (45.5-73.1); Platelet Count Result 239 k/mm3 (150-375); Red Blood Count 4.64 M/mm3 (4.2-5.4); Red Cell Distribution Width 14.1 % (11.5-14.5); White Blood Count 6.8 K/mm3 (4.5-10.0)
[2024-04-23 05:48] LABS: Anion Gap 0 mmol/L (4-12); Blood Urea Nitrogen 21 mg/dL (7-17); Calcium 8.6 mg/dL (8.4-10.2); Carbon Dioxide 32 mmol/L (22-30); Chloride 99 mmol/L (98-107); Estimated Glomerular Filt Rate > 60; Glucose 107 mg/dL (65-110); Potassium 3.8 mmol/L (3.4-5.0); Sodium 131 mmol/L (137-145)
[2024-04-23 05:56] VITALS: BP 130/71; PULSE 88; RESP 18; TEMP 37; O2SAT 94
[2024-04-23] MEDS: ENOXAPARIN 40 MG/0.4 ML SYRINGE SUB-Q (09:18)
[2024-04-23] MEDS: lisinopriL 20 MG TABLET 40 MG PO (09:18)
[2024-04-23] MEDS: DOCUSATE SODIUM 100 MG CAPSULE PO (09:18)
--- NOTE | 2024-04-23 09:59 | P.PNGS_ITS ---
Progress Note: A&P Assessment and Plan (1) Acute appendicitis: Onset Date: ~04/21/24 Qualifiers: Acute appendicitis type: with generalized peritonitis Appendicitis abscess presence: with abscess Appendicitis gangrene presence: without gangrene Appendicitis perforation presence: with perforation Qualified Code(s): K35.211 - Acute appendicitis with generalized peritonitis, with perforation and abscess Code(s): K35.80 - Unspecified acute appendicitis Status: Acute Assessment and Plan: * Continue clear liquids. Stimulate bowels with Dulcolax suppository. * Continue Zosyn * Await return of bowel function * Increase activity as tolerated (2) Ileus due to infection: Code(s): K56.7 - Ileus, unspecified; B99.9 - Unspecified infectious disease Status: Acute Subjective Subjective Date/Time Seen: 04/23/24 09:59 Interval history: feeling some bowel activity but no flatus or BM yet. Having some acid reflux. She has not been on her omeprazole since coming in. Feeling somewhat distended and not much appetite. Pain adequately controlled. Exam GI: Inspection: distended and incision (intact with glue) GI Palp: Yes Tenderness to palpation present (GI) (incisional and RLQ) and No Guarding due to palpation present (GI) Objective Data Vital Signs Vital Signs: Vital Signs - 24 hr 04/22/24 11:13 04/22/24 13:18 04/22/24 14:00 Temperature 97.7 F 97.2 F L Pulse Rate 84 97 Respiratory Rate 16 16 Blood Pressure 115/66 107/79 Pulse Oximetry 97 93 97 Oxygen Delivery Room Air 04/22/24 15:13 04/22/24 20:24 04/23/24 05:56 Temperature 99.7 F H 98.4 F 98.6 F Pulse Rate 95 95 88 Respiratory Rate 18 18 18 Blood Pressure 123/78 135/77 130/71 Pulse Oximetry 95 99 94 Oxygen Delivery 04/23/24 08:00 Temperature Pulse Rate Respiratory Rate Blood Pressure Pulse Oximetry Oxygen Delivery Room Air Intake/Output Intake/Output: Intake & Output 04/20/24 04/21/24 04/22/24 04/23/24 23:59 23:59 23:59 23:59 Intake Total 300 3080 830 Output Total 300 Balance 0 3080 830 Meds/Results Medications: Active Medications Generic Name Dose Route Start Last Admin Trade Name Freq PRN Reason Stop Dose Admin Acetaminophen 500 mg 04/21/24 17:28 Acetaminophen 500 Mg Tablet PO Q6H PRN Pain Rated 1-3 Hydrocodone Bitart/Acetaminophen 1 tab 04/21/24 17:28 04/22/24 09:35 Hydrocodone/Acetaminophen (*Crx) 5-325 Mg Tablet PO 1 tab Q4H PRN Administration Pain Rated 4-6 Hydrocodone Bitart/Acetaminophen 1 tab 04/21/24 17:28 04/22/24 18:43 Hydrocodone/Acetaminophen (*Crx) 7.5-325 Mg Tablet PO 1 tab Q4H PRN Administration Pain Rated 7-10 Bisacodyl 10 mg 04/23/24 09:53 Bisacodyl 10 Mg Suppository RECTAL 04/23/24 09:54 ONCE ONE Celecoxib 200 mg 04/22/24 00:01 Celecoxib 200 Mg Capsule PO DAILY PRN pain Cyclobenzaprine HCl 5 mg 04/22/24 00:03 Cyclobenzaprine Hcl 5 Mg Tablet PO Q8H PRN Muscle Spasm Docusate Sodium 100 mg 04/22/24 09:00 04/23/24 09:18 Docusate Sodium 100 Mg Capsule PO 100 mg DAILY RE[facility]O Administration Enoxaparin Sodium 40 mg 04/22/24 09:00 04/23/24 09:18 Enoxaparin 40 Mg/0.4 Ml Syringe SUB-Q 40 mg DAILY RE[facility] Administration Ibuprofen 800 mg in 200 mls @ 400 mls/hr 04/21/24 17:28 Caldolor 800 Mg/200 Ml IVPB Q6H PRN Breakthrough Pain Rated 1-3 or NPO Piperacillin/Tazobactam/Dextrose 3.375 gm in 50 mls @ 100 mls/hr 04/21/24 19:00 04/23/24 06:10 Zosyn 3.375 Gm/Ns 50 Ml IVPB 100 mls/hr Q6HR REGINO Administration Potassium Chloride/Dextrose/Sod Cl 1,000 mls @ 100 mls/hr 04/23/24 09:55 Kcl 20 Meq/D5/0.45% Sod Chl IV CONT .Q10H RE[facility]O Lisinopril 40 mg 04/22/24 09:00 04/23/24 09:18 Lisinopril 20 Mg Tablet PO 40 mg DAILY RE[facility] Administration Miscellaneous Information 0 each 04/22/24 00:01 Celecoxib Duplicate With Ibuprofen Iv D/C One XX 05/22/24 00:00 CL[facility]IFY [facility] Morphine Sulfate 2 mg 04/21/24 17:28 Morphine Sulfate (*Crx) 2 Mg/Ml Inj IV PUSH Q2H PRN Breakthrough Pain Rated 4-6 or NPO Morphine Sulfate 4 mg 04/21/24 17:28 Morphine Sulfate (*Crx) 4 Mg/Ml Inj IV PUSH Q2H PRN Breakthrough Pain Rated 7-10 or NPO Ondansetron HCl 4 mg 04/21/24 17:28 Ondansetron Inj 4 Mg/2 Ml Vial IV PUSH Q4H PRN Nausea And Vomiting Pantoprazole Sodium 40 mg 04/23/24 09:55 Pantoprazole Sodium Iv 40 [facility] Results: ITS Impressions Abdomen/Pelvis CT 04/21/24 12:57 IMPRESSION: 1. Dilated appendix with surrounding inflammatory changes including edematous cecal wall thickening at the appendiceal orifice consistent with acute appendicitis. Small collection of nonloculated appearing fluid near the appendix but no organized abscess or free intraperitoneal gas. 2. Multiple dilated loops of small bowel which appears to gradually decrease caliber distally in the right lower quadrant where there is some wall thickening of the small bowel but no discrete transition point and would favor enteritis reactive ileus related to acute appendicitis over a bowel obstruction. 3. Some degree of intestinal malrotation but without evident volvulus. 4. 1.4 cm indeterminate left renal lesion which could represent a statistically most likely complex mixed/proteinaceous cyst versus less likely solid enhancing renal cell carcinoma. Recommend further evaluation with follow-up pre and postcontrast MRI or CT. 5. Nonobstructing 2 mm left renal stone. 6. Cholelithiasis. Labs Labs: Laboratory Results - last 24 hr 04/23/24 05:22 WBC 6.8 RBC 4.64 Hgb 13.5 Hct 40.8 MCV 87.9 MCH 29.1 MCHC 33.1 RDW 14.1 Plt Count 239 MPV 9.7 Immature Gran % (Auto) 0.3 Neut % (Auto) 68.5 Lymph % (Auto) 15.6 L [place] % (Auto) 9.0 H Eos % (Auto) 6.3 H Baso % (Auto) 0.3 Lymph # (Auto) 1.06 [place] # (Auto) 0.6 Eos # (Auto) 0.4 H Baso # (Auto) 0.0 Abs Immat Gran (auto) 0.02 Absolute Neuts (auto) 4.7 Absolute Nucleated RBC 0.000 Nucleated RBC % 0.0 Sodium 131 L Potassium 3.8 Chloride 99 Carbon Dioxide 32 H Anion Gap 0 L BUN 21 H Creatinine 0.90 Estim Creat Clear Calc Not Reportable Estimated GFR > 60 Glucose 107 Calcium 8.6
--- NOTE | 2024-04-23 10:23 | P.PNIM_ITS ---
Progress Note: A&P Assessment and Plan (1) Appendicitis: Code(s): K37 - Unspecified appendicitis Status: Acute Assessment and Plan: IV Zosyn q.6-continue IV fluids continue Blood cultures pending 04/21- Laparoscopic appendectomy Laparoscopic drainage of intra-abdominal abscess -surgery is following (2) UTI (urinary tract infection): Code(s): N39.0 - Urinary tract infection, site not specified Status: Acute Assessment and Plan: IV Zosyn Cultured sensitivities pending (3) Enteritis: Code(s): K52.9 - Noninfective gastroenteritis and colitis, unspecified Status: Acute Assessment and Plan: IV Zosyn she was on clear liquids- not much appetite at all (4) Hyponatremia: Code(s): E87.1 - Hypo-osmolality and hyponatremia Status: Acute Assessment and Plan: IV fluids Repeat BMP in the morning (5) Intestinal malrotation: Code(s): 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 Status: Acute Assessment and Plan: Some degree of intestinal malrotation but without evident volvulus Non peritoneal (6) Total bilirubin, elevated: Code(s): R17 - Unspecified jaundice Status: Acute Assessment and Plan: LFTs within normal limits (7) Kidney stone on left side: Code(s): N20.0 - Calculus of kidney Status: Acute Assessment and Plan: 2 mm stone should be able to pass IV fluid fluids for hydration (8) Renal lesion: Code(s): N28.9 - Disorder of kidney and ureter, unspecified Status: Acute Assessment and Plan: 1.4 cm indeterminate left renal lesion which could represent a statistically most likely complex mixed/proteinaceous cyst versus less likely solid enhancing renal cell carcinoma. Recommend further evaluation with follow-up pre and postcontrast MRI or CT. (9) Ileus due to infection: Code(s): K56.7 - Ileus, unspecified; B99.9 - Unspecified infectious disease Status: Acute Assessment and Plan: post procedural clear liquids iv fluids ambulations, dulcolax suppositories if starts feeling more nauseated/vomiting- may need NG tube Plan Incidental findings of gallstones on CT, no intervention needed Time Spent With Patient Time with patient: Greater than 35 minutes Subjective Date/time seen: 04/23/24 10:23 Interval history: 76-year-old female past medical history of hypertension presenting to the emergency department for evaluation for nausea vomiting and diarrhea. Patient states that a few days ago she started having upper abdominal pain that gradually progressed into the lower abdomen. Associated with nausea and vomiting and diarrhea. CT abdomen pelvis show Dilated appendix with surrounding inflammatory changes including edematous cecal wall thickening at the appendiceal orifice consistent with acute appendicitis. Small collection of nonloculated appearing fluid near the appendix but no organized abscess or free intraperitoneal gas. Multiple dilated loops of small bowel which appears to gradually decrease caliber distally in the right lower quadrant where there is some wall thickening of the small bowel but no discrete transition point and would favor enteritis reactive ileus related to acute appendicitis over a bowel obstruction. Some degree of intestinal malrotation but without evident volvulus. 1.4 cm indeterminate left renal lesion which could represent a statistically most likely complex mixed/proteinaceous cyst versus less likely solid enhancing renal cell carcinoma. Recommend further evaluation with follow-up pre and postcontrast MRI or CT. Patient was also found to have a UTI with 1+ leukocyte esterase, and negative for nitrates, 2+ bacteria. Nonobstructing 2 mm left renal stone. Cholelithiasis. Patient was seen by General surgery will plan to go to OR 04/23- pt is seen and examined. Yesterday her diet was advanced and she did not tolerate it well at all- so it wad changed back to clear. acid reflux bothering her- she was started on IV protonix. She got suppository and was trying to have BM. IV fluids were stopped around 1830 last night per dairy husbandman of Systems Review of Systems: 12 systems were reviewed and are negativ e except for as per HPI. Exam Narrative: General: well appearing, appears stated age. HEENT: normocephalic, atraumatic. Mucous membranes moist. EOMI, PERRLA, bilateral sclera anicteric, no conjunctival injection. Neck supple without JVD, lymphadenopathy, or bruit. Respiratory: clear to ascultation bilaterally. No rales/rhonic/wheezes. Cardiovascular: Regular rate and rhythm, normal S1-S2 upon ascultation. No murmurs, rubs, or clicks. PMI is nondisplaced, capillary refill less than 3 second. Abdomen: Distended, laparoscopic sites Dermabond. diminished BS Extremities: No cyanosis, clubbing, or edema present. Pulses are palpable 2/2. Active ROM to all four extremities. Neuro: Alert and orientated x 4. PERRLA. Cranial nerves 2-12 intact without focal deficit. Skin: Warm, dry, and intact, without rash, erythema, or lesion. Psych: pleasant, cooperative, normal speech, normal affect, no hallucinations, no dysarthia Const: General: comfortable Objective Data Vital Signs Vital Signs: Vital Signs - 24 hr 04/22/24 11:13 04/22/24 13:18 04/22/24 14:00 Temperature 97.7 F 97.2 F L Pulse Rate 84 97 Respiratory Rate 16 16 Blood Pressure 115/66 107/79 Pulse Oximetry 97 93 97 Oxygen Delivery Room Air 04/22/24 15:13 04/22/24 20:24 04/23/24 05:56 Temperature 99.7 F H 98.4 F 98.6 F Pulse Rate 95 95 88 Respiratory Rate 18 18 18 Blood Pressure 123/78 135/77 130/71 Pulse Oximetry 95 99 94 Oxygen Delivery 04/23/24 08:00 Temperature Pulse Rate Respiratory Rate Blood Pressure Pulse Oximetry Oxygen Delivery Room Air Intake/Output Intake/Output: Intake & Output 04/20/24 04/21/24 04/22/24 04/23/24 23:59 23:59 23:59 23:59 Intake Total 300 3080 830 Output Total 300 Balance 0 3080 830 Meds/Results Medications: Active Medications Generic Name Dose Route Start Last Admin Trade Name Freq PRN Reason Stop Dose Admin Acetaminophen 500 mg 04/21/24 17:28 Acetaminophen 500 Mg Tablet PO Q6H PRN Pain Rated 1-3 Hydrocodone Bitart/Acetaminophen 1 tab 04/21/24 17:28 04/22/24 09:35 Hydrocodone/Acetaminophen (*Crx) 5-325 Mg Tablet PO 1 tab Q4H PRN Administration Pain Rated 4-6 Hydrocodone Bitart/Acetaminophen 1 tab 04/21/24 17:28 04/22/24 18:43 Hydrocodone/Acetaminophen (*Crx) 7.5-325 Mg Tablet PO 1 tab Q4H PRN Administration Pain Rated 7-10 Celecoxib 200 mg 04/22/24 00:01 Celecoxib 200 Mg Capsule PO DAILY PRN pain Cyclobenzaprine HCl 5 mg 04/22/24 00:03 Cyclobenzaprine Hcl 5 Mg Tablet PO Q8H PRN Muscle Spasm Docusate Sodium 100 mg 04/22/24 09:00 04/23/24 09:18 Docusate Sodium 100 Mg Capsule PO 100 mg DAILY [facility] Administration Enoxaparin Sodium 40 mg 04/22/24 09:00 04/23/24 09:18 Enoxaparin 40 Mg/0.4 Ml Syringe SUB-Q 40 mg DAILY [facility] Administration Ibuprofen 800 mg in 200 mls @ 400 mls/hr 04/21/24 17:28 Caldolor 800 Mg/200 Ml IVPB Q6H PRN Breakthrough Pain Rated 1-3 or NPO Piperacillin/Tazobactam/Dextrose 3.375 gm in 50 mls @ 100 mls/hr 04/21/24 19:00 04/23/24 06:10 Zosyn 3.375 Gm/Ns 50 Ml IVPB 100 mls/hr Q6HR [facility]GINO Administration Potassium Chloride/Dextrose/Sod Cl 1,000 mls @ 100 mls/hr 04/23/24 09:55 Kcl 20 Meq/D5/0.45% Sod Chl IV CONT .Q10H [facility] Lisinopril 40 mg 04/22/24 09:00 04/23/24 09:18 Lisinopril 20 Mg Tablet PO 40 mg DAILY [facility] Administration Miscellaneous Information 0 each 04/22/24 00:01 Celecoxib Duplicate With Ibuprofen Iv D/C One XX 05/22/24 00:00 CLARIFY [facility] Morphine Sulfate 2 mg 04/21/24 17:28 Morphine Sulfate (*Crx) 2 Mg/Ml Inj IV PUSH Q2H PRN Breakthrough Pain Rated 4-6 or NPO Morphine Sulfate 4 mg 04/21/24 17:28 Morphine Sulfate (*Crx) 4 Mg/Ml Inj IV PUSH Q2H PRN Breakthrough Pain Rated 7-10 or NPO Ondansetron HCl 4 mg 04/21/24 17:28 Ondansetron Inj 4 Mg/2 Ml Vial IV PUSH Q4H PRN Nausea And Vomiting Pantoprazole Sodium 40 mg 04/23/24 09:55 Pantoprazole Sodium Iv 40 Mg Vial IV PUSH QAM [facility] Radiology Results: ITS Impressions Abdomen/Pelvis CT 04/21/24 12:57 IMPRESSION: 1. Dilated appendix with surrounding inflammatory changes including edematous cecal wall thickening at the appendiceal orifice consistent with acute appendicitis. Small collection of nonloculated appearing fluid near the appendix but no organized abscess or free intraperitoneal gas. 2. Multiple dilated loops of small bowel which appears to gradually decrease caliber distally in the right lower quadrant where there is some wall thickening of the small bowel but no discrete transition point and would favor enteritis reactive ileus related to acute appendicitis over a bowel obstruction. 3. Some degree of intestinal malrotation but without evident volvulus. 4. 1.4 cm indeterminate left renal lesion which could represent a statistically most likely complex mixed/proteinaceous cyst versus less likely solid enhancing renal cell carcinoma. Recommend further evaluation with follow-up pre and postcontrast MRI or CT. 5. Nonobstructing 2 mm left renal stone. 6. Cholelithiasis. Labs Labs: Laboratory Results - last 24 hr 04/23/24 05:22 WBC 6.8 RBC 4.64 Hgb 13.5 Hct 40.8 MCV 87.9 MCH 29.1 MCHC 33.1 RDW 14.1 Plt Count 239 MPV 9.7 Immature Gran % (Auto) 0.3 Neut % (Auto) 68.5 Lymph % (Auto) 15.6 L [place] % (Auto) 9.0 H Eos % (Auto) 6.3 H Baso % (Auto) 0.3 Lymph # (Auto) 1.06 [place] # (Auto) 0.6 Eos # (Auto) 0.4 H Baso # (Auto) 0.0 Abs Immat Gran (auto) 0.02 Absolute Neuts (auto) 4.7 Absolute Nucleated RBC 0.000 Nucleated RBC % 0.0 Sodium 131 L Potassium 3.8 Chloride 99 Carbon Dioxide 32 H Anion Gap 0 L BUN 21 H Creatinine 0.90 Estim Creat Clear Calc Not Reportable Estimated GFR > 60 Glucose 107 Calcium 8.6 Quality VTE Prophylaxis VTE prophylaxis: mechanical ordered and pharmacologic ordered
[2024-04-23] MEDS: KCL 20 MEQ/D5/0.45% SOD CHL 1,000 ML 100 ML IV CONT (12:19)
[2024-04-23] MEDS: BISACODYL 10 MG SUPPOSITORY RECTAL (12:20)
[2024-04-23] MEDS: PANTOPRAZOLE SODIUM IV 40 MG VIAL IV PUSH (12:20)
[2024-04-23 14:41] VITALS: BP 127/80; PULSE 93; RESP 18; TEMP 36.3; O2SAT 97
[2024-04-23 20:49] VITALS: BP 138/89; PULSE 86; RESP 20; TEMP 37; O2SAT 94
[2024-04-24] MEDS: PIPERACILLN/TAZ 3.375GM/NS50ML 3.375 GM/50 ML BAG IVPB ×5 (00:26→23:43)
[2024-04-24] MEDS: KCL 20 MEQ/D5/0.45% SOD CHL 1,000 ML 100 ML IV CONT (03:28)
[2024-04-24 06:00] VITALS: BP 119/67; PULSE 87; RESP 18; TEMP 37.1; O2SAT 96
[2024-04-24] MEDS: PANTOPRAZOLE SODIUM IV 40 MG VIAL IV PUSH (07:36)
[2024-04-24 08:00] VITALS: O2SAT 96
[2024-04-24] MEDS: lisinopriL 20 MG TABLET 40 MG PO (08:58)
[2024-04-24] MEDS: ENOXAPARIN 40 MG/0.4 ML SYRINGE SUB-Q (08:58)
--- NOTE | 2024-04-24 10:15 | PM.IMPN ---
Progress Note: A&P Assessment and Plan (1) Appendicitis: Code(s): K37 - Unspecified appendicitis Status: Acute Assessment and Plan: IV Zosyn q.6-continue IV fluids continue Blood cultures pending 04/21- Laparoscopic appendectomy Laparoscopic drainage of intra-abdominal abscess -surgery is following (2) UTI (urinary tract infection): Code(s): N39.0 - Urinary tract infection, site not specified Status: Acute Assessment and Plan: IV Zosyn Cultured sensitivities pending (3) Enteritis: Code(s): K52.9 - Noninfective gastroenteritis and colitis, unspecified Status: Acute Assessment and Plan: IV Zosyn she was on clear liquids- not much appetite at all (4) Hyponatremia: Code(s): E87.1 - Hypo-osmolality and hyponatremia Status: Acute Assessment and Plan: IV fluids Repeat BMP in the morning (5) Intestinal malrotation: Code(s): 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 Status: Acute Assessment and Plan: Some degree of intestinal malrotation but without evident volvulus Non peritoneal (6) Total bilirubin, elevated: Code(s): R17 - Unspecified jaundice Status: Acute Assessment and Plan: LFTs within normal limits (7) Kidney stone on left side: Code(s): N20.0 - Calculus of kidney Status: Acute Assessment and Plan: 2 mm stone should be able to pass IV fluid fluids for hydration (8) Renal lesion: Code(s): N28.9 - Disorder of kidney and ureter, unspecified Status: Acute Assessment and Plan: 1.4 cm indeterminate left renal lesion which could represent a statistically most likely complex mixed/proteinaceous cyst versus less likely solid enhancing renal cell carcinoma. Recommend further evaluation with follow-up pre and postcontrast MRI or CT. (9) Ileus due to infection: Code(s): K56.7 - Ileus, unspecified; B99.9 - Unspecified infectious disease Status: Acute Assessment and Plan: post procedural clear liquids iv fluids ambulations, dulcolax suppositories if starts feeling more nauseated/vomiting- may need NG tube 04/24- documented BM improving Plan Incidental findings of gallstones on CT, no intervention needed Time Spent With Patient Time with patient: Greater than 35 minutes Subjective Date/time seen: 04/24/24 10:15 Interval history: 76-year-old female past medical history of hypertension presenting to the emergency department for evaluation for nausea vomiting and diarrhea. Patient states that a few days ago she started having upper abdominal pain that gradually progressed into the lower abdomen. Associated with nausea and vomiting and diarrhea. CT abdomen pelvis show Dilated appendix with surrounding inflammatory changes including edematous cecal wall thickening at the appendiceal orifice consistent with acute appendicitis. Small collection of nonloculated appearing fluid near the appendix but no organized abscess or free intraperitoneal gas. Multiple dilated loops of small bowel which appears to gradually decrease caliber distally in the right lower quadrant where there is some wall thickening of the small bowel but no discrete transition point and would favor enteritis reactive ileus related to acute appendicitis over a bowel obstruction. Some degree of intestinal malrotation but without evident volvulus. 1.4 cm indeterminate left renal lesion which could represent a statistically most likely complex mixed/proteinaceous cyst versus less likely solid enhancing renal cell carcinoma. Recommend further evaluation with follow-up pre and postcontrast MRI or CT. Patient was also found to have a UTI with 1+ leukocyte esterase, and negative for nitrates, 2+ bacteria. Nonobstructing 2 mm left renal stone. Cholelithiasis. Patient was seen by General surgery will plan to go to OR 04/23- pt is seen and examined. Yesterday her diet was advanced and she did not tolerate it well at all- so it wad changed back to clear. acid reflux bothering her- she was started on IV protonix. She got suppository and was trying to have BM. IV fluids were stopped around 1830 last night per RN 04/24- seen and examined. had BM last night. Less bloated. Anticipate dishcarge tomorrow possibly if stable overnight and tolerated diet per surg. Review of Systems Review of Systems: 12 systems were reviewed and are negative except for as per HPI. Exam Narrative: General: well appearing, appears stated age. HEENT: normocephalic, atraumatic. Mucous membranes moist. EOMI, PERRLA, bilateral sclera anicteric, no conjunctival injection. Neck supple without JVD, lymphadenopathy, or bruit. Respiratory: clear to ascultation bilaterally. No rales/rhonic/wheezes. Cardiovascular: Regular rate and rhythm, normal S1-S2 upon auscultation. No murmurs, rubs, or clicks. PMI is nondisplaced, capillary refill less than 3 second. Abdomen: laparoscopic sites Dermabond. diminished BS. less distended today Extremities: No cyanosis, clubbing, or edema present. Pulses are palpable 2/2. Active ROM to all four extremities. Neuro: Alert and orientated x 4. PERRLA. Cranial nerves 2-12 intact without focal deficit. Skin: Warm, dry, and intact, without rash, erythema, or lesion. Psych: pleasant, cooperative, normal speech, normal affect, no hallucinations, no dysarthria. Const: General: comfortable Objective Data Vital Signs Vital Signs: Vital Signs - 24 hr 04/23/24 14:41 04/23/24 20:49 04/24/24 06:00 Temperature 97.3 F L 98.6 F 98.8 F Pulse Rate 93 86 87 Respiratory Rate 18 20 18 Blood Pressure 127/80 138/89 119/67 Pulse Oximetry 97 94 96 Oxygen Delivery 04/24/24 08:00 Temperature Pulse Rate Respiratory Rate Blood Pressure Pulse Oximetry 96 Oxygen Delivery Room Air Intake/Output Intake/Output: Intake & Output 04/21/24 04/22/24 04/23/24 04/24/24 23:59 23:59 23:59 23:59 Intake Total 300 3080 2480 600 Output Total 300 Balance 0 3080 2480 600 Meds/Results Medications: Active Medications Generic Name Dose Route Start Last Admin Trade Name Freq PRN Reason Stop Dose Admin Acetaminophen 500 mg 04/21/24 17:28 Acetaminophen 500 Mg Tablet PO Q6H PRN Pain Rated 1-3 Hydrocodone Bitart/Acetaminophen 1 tab 04/21/24 17:28 04/22/24 09:35 Hydrocodone/Acetaminophen (*Crx) 5-325 Mg Tablet PO 1 tab Q4H PRN Administration Pain Rated 4-6 Hydrocodone Bitart/Acetaminophen 1 tab 04/21/24 17:28 04/22/24 18:43 Hydrocodone/Acetaminophen (*Crx) 7.5-325 Mg Tablet PO 1 tab Q4H PRN Administration Pain Rated 7-10 Celecoxib 200 mg 04/22/24 00:01 Celecoxib 200 Mg Capsule PO DAILY PRN pain Cyclobenzaprine HCl 5 mg 04/22/24 00:03 Cyclobenzaprine Hcl 5 Mg Tablet PO Q8H PRN Muscle Spasm Docusate Sodium 100 mg 04/22/24 09:00 04/24/24 09:00 Docusate Sodium 100 Mg Capsule PO Not Given DAILY [facility] Enoxaparin Sodium 40 mg 04/22/24 09:00 04/24/24 08:58 Enoxaparin 40 Mg/0.4 Ml Syringe SUB-Q 40 mg DAILY [facility] Administration Ibuprofen 800 mg in 200 mls @ 400 mls/hr 04/21/24 17:28 Caldolor 800 Mg/200 Ml IVPB Q6H PRN Breakthrough Pain Rated 1-3 or NPO Piperacillin/Tazobactam/Dextrose 3.375 gm in 50 mls @ 100 mls/hr 04/21/24 19:00 04/24/24 06:17 Zosyn 3.375 Gm/Ns 50 Ml IVPB Infused Q6HR [facility] Infusion Potassium Chloride/Dextrose/Sod Cl 1,000 mls @ 100 mls/hr 04/23/24 09:55 04/24/24 03:28 Kcl 20 Meq/D5/0.45% Sod Chl IV CONT 100 mls/hr .Q10H [facility] Administration Lisinopril 40 mg 04/22/24 09:00 04/24/24 08:58 Lisinopril 20 Mg Tablet PO 40 mg DAILY [facility] Administration Morphine Sulfate 2 mg 04/21/24 17:28 Morphine Sulfate (*Crx) 2 Mg/Ml Inj IV PUSH Q2H PRN Breakthrough Pain Rated 4-6 or NPO Morphine Sulfate 4 mg 04/21/24 17:28 Morphine Sulfate (*Crx) 4 Mg/Ml Inj IV PUSH Q2H PRN Breakthrough Pain Rated 7-10 or NPO Ondansetron HCl 4 mg 04/21/24 17:28 Ondansetron Inj 4 Mg/2 Ml Vial IV PUSH Q4H PRN Nausea And Vomiting Pantoprazole Sodium 40 mg 04/23/24 09:55 04/24/24 07:36 Pantoprazole Sodium Iv 40 Mg Vial IV PUSH 40 mg QAM [facility] Administration Pantoprazole Sodium 40 mg 04/24/24 09:00 Pantoprazole 40 Mg Tablet PO 05/24/24 08:59 DAILY [facility] Radiology Results: ITS Impressions Abdomen/Pelvis CT 04/21/24 12:57 IMPRESSION: 1. Dilated appendix with surrounding inflammatory changes including edematous cecal wall thickening at the appendiceal orifice consistent with acute appendicitis. Small collection of nonloculated appearing fluid near the appendix but no organized abscess or free intraperitoneal gas. 2. Multiple dilated loops of small bowel which appears to gradually decrease caliber distally in the right lower quadrant where there is some wall thickening of the small bowel but no discrete transition point and would favor enteritis reactive ileus related to acute appendicitis over a bowel obstruction. 3. Some degree of intestinal malrotation but without evident volvulus. 4. 1.4 cm indeterminate left renal lesion which could represent a statistically most likely complex mixed/proteinaceous cyst versus less likely solid enhancing renal cell carcinoma. Recommend further evaluation with follow-up pre and postcontrast MRI or CT. 5. Nonobstructing 2 mm left renal stone. 6. Cholelithiasis. Quality VTE Prophylaxis VTE prophylaxis: mechanical ordered and pharmacologic ordered
--- NOTE | 2024-04-24 11:11 | P.PNGS_ITS ---
Progress Note: A&P Assessment and Plan (1) Acute appendicitis: Onset Date: ~04/21/24 Qualifiers: Acute appendicitis type: with generalized peritonitis Appendicitis abscess presence: with abscess Appendicitis gangrene presence: without gangrene Appendicitis perforation presence: with perforation Qualified Code(s): K35.211 - Acute appendicitis with generalized peritonitis, with perforation and abscess Code(s): K35.80 - Unspecified acute appendicitis Status: Acute Assessment and Plan: * Advance diet as tolerated * Continue Zosyn * Increase activity as tolerated * Possibly home tomorrow if tolerating diet (2) Ileus due to infection: Code(s): K56.7 - Ileus, unspecified; B99.9 - Unspecified infectious disease Status: Acute Assessment and Plan: * Resolved Subjective Subjective Date/Time Seen: 04/24/24 11:11 Interval history: Bowels moving. Tolerating clears. Less bloated feeling and no nausea. Exam GI: Inspection: non-distended, incision (intact with glue) and obesity GI Palp: Yes Soft to palpation, Yes Tenderness to palpation present (GI) (LLQ incision) and No Guarding due to palpation present (GI) Auscultation: normal bowel sounds Objective Data Vital Signs Vital Signs: Vital Signs - 24 hr 04/23/24 14:41 04/23/24 20:49 04/24/24 06:00 Temperature 97.3 F L 98.6 F 98.8 F Pulse Rate 93 86 87 Respiratory Rate 18 20 18 Blood Pressure 127/80 138/89 119/67 Pulse Oximetry 97 94 96 Oxygen Delivery 04/24/24 08:00 Temperature Pulse Rate Respiratory Rate Blood Pressure Pulse Oximetry 96 Oxygen Delivery Room Air Intake/Output Intake/Output: Intake & Output 04/21/24 04/22/24 04/23/24 04/24/24 23:59 23:59 23:59 23:59 Intake Total 300 3080 2480 600 Output Total 300 Balance 0 3080 2480 600 Meds/Results Medications: Active Medications Generic Name Dose Route Start Last Admin Trade Name Freq PRN Reason Stop Dose Admin Acetaminophen 500 mg 04/21/24 17:28 Acetaminophen 500 Mg Tablet PO Q6H PRN Pain Rated 1-3 Hydrocodone Bitart/Acetaminophen 1 tab 04/21/24 17:28 04/22/24 09:35 Hydrocodone/Acetaminophen (*Crx) 5-325 Mg Tablet PO 1 tab Q4H PRN Administration Pain Rated 4-6 Hydrocodone Bitart/Acetaminophen 1 tab 04/21/24 17:28 04/22/24 18:43 Hydrocodone/Acetaminophen (*Crx) 7.5-325 Mg Tablet PO 1 tab Q4H PRN Administration Pain Rated 7-10 Celecoxib 200 mg 04/22/24 00:01 Celecoxib 200 Mg Capsule PO DAILY PRN pain Cyclobenzaprine HCl 5 mg 04/22/24 00:03 Cyclobenzaprine Hcl 5 Mg Tablet PO Q8H PRN Muscle Spasm Docusate Sodium 100 mg 04/22/24 09:00 04/24/24 09:00 Docusate Sodium 100 Mg Capsule PO Not Given DAILY [facility] Enoxaparin Sodium 40 mg 04/22/24 09:00 04/24/24 08:58 Enoxaparin 40 Mg/0.4 Ml Syringe SUB-Q 40 mg DAILY [facility] Administration Ibuprofen 800 mg in 200 mls @ 400 mls/hr 04/21/24 17:28 Caldolor 800 Mg/200 Ml IVPB Q6H PRN Breakthrough Pain Rated 1-3 or NPO Piperacillin/Tazobactam/Dextrose 3.375 gm in 50 mls @ 100 mls/hr 04/21/24 19:00 04/24/24 06:17 Zosyn 3.375 Gm/Ns 50 Ml IVPB Infused Q6HR [facility] Infusion Lisinopril 40 mg 04/22/24 09:00 04/24/24 08:58 Lisinopril 20 Mg Tablet PO 40 mg DAILY [facility] Administration Morphine Sulfate 2 mg 04/21/24 17:28 Morphine Sulfate (*Crx) 2 Mg/Ml Inj IV PUSH Q2H PRN Breakthrough Pain Rated 4-6 or NPO Morphine Sulfate 4 mg 04/21/24 17:28 Morphine Sulfate (*Crx) 4 Mg/Ml Inj IV PUSH Q2H PRN Breakthrough Pain Rated 7-10 or NPO Ondansetron HCl 4 mg 04/21/24 17:28 Ondansetron Inj 4 Mg/2 Ml Vial IV PUSH Q4H PRN Nausea And Vomiting Pantoprazole Sodium 40 mg 04/23/24 09:55 04/24/24 07:36 Pantoprazole Sodium Iv 40 Mg Vial IV PUSH 40 mg QAM [facility] Administration Pantoprazole Sodium 40 mg 04/24/24 09:00 Pantoprazole 40 Mg Tablet PO 05/24/24 08:59 DAILY [facility] Radiology Results: ITS Impressions Abdomen/Pelvis CT 04/21/24 12:57 IMPRESSION: 1. Dilated appendix with surrounding inflammatory changes including edematous cecal wall thickening at the appendiceal orifice consistent with acute appendicitis. Small collection of nonloculated appearing fluid near the appendix but no organized abscess or free intraperitoneal gas. 2. Multiple dilated loops of small bowel which appears to gradually decrease caliber distally in the right lower quadrant where there is some wall thickening of the small bowel but no discrete transition point and would favor enteritis reactive ileus related to acute appendicitis over a bowel obstruction. 3. Some degree of intestinal malrotation but without evident volvulus. 4. 1.4 cm indeterminate left renal lesion which could represent a statistically most likely complex mixed/proteinaceous cyst versus less likely solid enhancing renal cell carcinoma. Recommend further evaluation with follow-up pre and postcontrast MRI or CT. 5. Nonobstructing 2 mm left renal stone. 6. Cholelithiasis.
[2024-04-24 14:10] VITALS: BP 153/81; PULSE 80; RESP 17; TEMP 36.4; O2SAT 92
[2024-04-24 20:58] VITALS: BP 124/71; PULSE 75; RESP 18; TEMP 36.8; O2SAT 96
[2024-04-25] MEDS: PIPERACILLN/TAZ 3.375GM/NS50ML 3.375 GM/50 ML BAG IVPB (05:46)
[2024-04-25 05:51] LABS: Hematocrit 43.5 % (37.0-47.0); Mean Corpuscular HGB Conc 32.2 g/dl (32-36); Mean Corpuscular Hemoglobin 28.2 pg (26-34); Mean Corpuscular Volume 87.5 fl (80-100); Mean Platelet Volume 9.5 fl (7.4-10.4); Platelet Count Result 301 k/mm3 (150-375); Red Blood Count 4.97 M/mm3 (4.2-5.4); White Blood Count 6.3 K/mm3 (4.5-10.0)
[2024-04-25 06:00] VITALS: BP 143/88; PULSE 75; RESP 16; TEMP 37; O2SAT 95
[2024-04-25 06:13] LABS: Anion Gap 2 mmol/L (4-12); Blood Urea Nitrogen 11 mg/dL (7-17); Calcium 9.4 mg/dL (8.4-10.2); Carbon Dioxide 27 mmol/L (22-30); Chloride 104 mmol/L (98-107); Estimated Glomerular Filt Rate > 60; Glucose 94 mg/dL (65-110); Potassium 3.9 mmol/L (3.4-5.0); Sodium 133 mmol/L (137-145)
--- NOTE | 2024-04-25 06:24 | PM.PNGS ---
Progress Note: A&P Assessment and Plan (1) Acute appendicitis: Onset Date: ~04/21/24 Qualifiers: Acute appendicitis type: with generalized peritonitis Appendicitis abscess presence: with abscess Appendicitis gangrene presence: without gangrene Appendicitis perforation presence: with perforation Qualified Code(s): K35.211 - Acute appendicitis with generalized peritonitis, with perforation and abscess Code(s): K35.80 - Unspecified acute appendicitis Status: Acute Assessment and Plan: Doing well. OK to discharge today. Follow up with me in 2 weeks. (2) Ileus due to infection: Code(s): K56.7 - Ileus, unspecified; B99.9 - Unspecified infectious disease Status: Acute Assessment and Plan: Resolved Subjective Subjective Date/Time Seen: 04/25/24 06:24 Interval history: Tolerating diet. Passing flatus and bowels moving. Pain controlled. Afebrile. Exam GI: Inspection: non-distended, incision (intact with glue) and obesity GI Palp: Yes Soft to palpation, Yes Tenderness to palpation present (GI) (LLQ incision) and No Guarding due to palpation present (GI) Auscultation: normal bowel sounds Objective Data Vital Signs Vital Signs: Vital Signs - 24 hr 04/24/24 08:00 04/24/24 14:10 04/24/24 20:58 Temperature 97.5 F L 98.2 F Pulse Rate 80 75 Respiratory Rate 17 18 Blood Pressure 153/81 H 124/71 Pulse Oximetry 96 92 96 Oxygen Delivery Room Air Intake/Output Intake/Output: Intake & Output 04/22/24 04/23/24 04/24/24 04/25/24 23:59 23:59 23:59 23:59 Intake Total 3080 2480 2090 100 Balance 3080 2480 2090 100 Meds/Results Medications: Active Medications Generic Name Dose Route Start Last Admin Trade Name Freq PRN Reason Stop Dose Admin Acetaminophen 500 mg 04/21/24 17:28 Acetaminophen 500 Mg Tablet PO Q6H PRN Pain Rated 1-3 Hydrocodone Bitart/Acetaminophen 1 tab 04/21/24 17:28 04/22/24 09:35 Hydrocodone/Acetaminophen (*Crx) 5-325 Mg Tablet PO 1 tab Q4H PRN Administration Pain Rated 4-6 Hydrocodone Bitart/Acetaminophen 1 tab 04/21/24 17:28 04/22/24 18:43 Hydrocodone/Acetaminophen (*Crx) 7.5-325 Mg Tablet PO 1 tab Q4H PRN Administration Pain Rated 7-10 Celecoxib 200 mg 04/22/24 00:01 Celecoxib 200 Mg Capsule PO DAILY PRN pain Cyclobenzaprine HCl 5 mg 04/22/24 00:03 Cyclobenzaprine Hcl 5 Mg Tablet PO Q8H PRN Muscle Spasm Docusate Sodium 100 mg 04/22/24 09:00 04/24/24 09:00 Docusate Sodium 100 Mg Capsule PO Not Given DAILY [facility] Enoxaparin Sodium 40 mg 04/22/24 09:00 04/24/24 08:58 Enoxaparin 40 Mg/0.4 Ml Syringe SUB-Q 40 mg DAILY [facility] Administration Ibuprofen 800 mg in 200 mls @ 400 mls/hr 04/21/24 17:28 Caldolor 800 Mg/200 Ml IVPB Q6H PRN Breakthrough Pain Rated 1-3 or NPO Piperacillin/Tazobactam/Dextrose 3.375 gm in 50 mls @ 100 mls/hr 04/21/24 19:00 04/25/24 06:16 Zosyn 3.375 Gm/Ns 50 Ml IVPB Infused Q6HR [facility] Infusion Lisinopril 40 mg 04/22/24 09:00 04/24/24 08:58 Lisinopril 20 Mg Tablet PO 40 mg DAILY [facility] Administration Magnesium Hydroxide 30 ml 04/25/24 06:23 Magnesium Hydroxide Susp 30 Ml Udc PO 04/25/24 06:24 ONCE ONE Morphine Sulfate 2 mg 04/21/24 17:28 Morphine Sulfate (*Crx) 2 Mg/Ml Inj IV PUSH Q2H PRN Breakthrough Pain Rated 4-6 or NPO Morphine Sulfate 4 mg 04/21/24 17:28 Morphine Sulfate (*Crx) 4 Mg/Ml Inj IV PUSH Q2H PRN Breakthrough Pain Rated 7-10 or NPO Ondansetron HCl 4 mg 04/21/24 17:28 Ondansetron Inj 4 Mg/2 Ml Vial IV PUSH Q4H PRN Nausea And Vomiting Pantoprazole Sodium 40 mg 04/23/24 09:55 04/24/24 07:36 Pantoprazole Sodium Iv 40 Mg Vial IV PUSH 40 mg QAM [facility] Administration Pantoprazole Sodium 40 mg 04/24/24 09:00 Pantoprazole 40 Mg Tablet PO 05/24/24 08:59 DAILY [facility] Radiology Results: ITS Impressions Abdomen/Pelvis CT 04/21/24 12:57 IMPRESSION: 1. Dilated appendix with surrounding inflammatory changes including edematous cecal wall thickening at the appendiceal orifice consistent with acute appendicitis. Small collection of nonloculated appearing fluid near the appendix but no organized abscess or free intraperitoneal gas. 2. Multiple dilated loops of small bowel which appears to gradually decrease caliber distally in the right lower quadrant where there is some wall thickening of the small bowel but no discrete transition point and would favor enteritis reactive ileus related to acute appendicitis over a bowel obstruction. 3. Some degree of intestinal malrotation but without evident volvulus. 4. 1.4 cm indeterminate left renal lesion which could represent a statistically most likely complex mixed/proteinaceous cyst versus less likely solid enhancing renal cell carcinoma. Recommend further evaluation with follow-up pre and postcontrast MRI or CT. 5. Nonobstructing 2 mm left renal stone. 6. Cholelithiasis. Labs Labs: Laboratory Results - last 24 hr 04/25/24 05:43 WBC 6.3 RBC 4.97 Hgb 14.0 Hct 43.5 MCV 87.5 MCH 28.2 MCHC 32.2 RDW 14.0 Plt Count 301 MPV 9.5 Sodium 133 L Potassium 3.9 Chloride 104 Carbon Dioxide 27 Anion Gap 2 L BUN 11 D Creatinine 0.90 Estim Creat Clear Calc Not Reportable Estimated GFR > 60 Glucose 94 Calcium 9.4
[2024-04-25 08:00] VITALS: O2SAT 95
[2024-04-25] MEDS: lisinopriL 20 MG TABLET 40 MG PO (09:07)
--- NOTE | 2024-04-25 09:14 | P.DS_ITS ---
DS: Admitting Diagnosis Discharge Date 04/25 Admitting Diagnosis abd pain DS: Discharge Diagnosis Discharge Diagnosis (1) Appendicitis: Code(s): K37 - Unspecified appendicitis Status: Acute (2) UTI (urinary tract infection): Code(s): N39.0 - Urinary tract infection, site not specified Status: Acute (3) Enteritis: Code(s): K52.9 - Noninfective gastroenteritis and colitis, unspecified Status: Acute (4) Hyponatremia: Code(s): E87.1 - Hypo-osmolality and hyponatremia Status: Acute (5) Intestinal malrotation: Code(s): 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 Status: Acute (6) Total bilirubin, elevated: Code(s): R17 - Unspecified jaundice Status: Acute (7) Kidney stone on left side: Code(s): N20.0 - Calculus of kidney Status: Acute (8) Renal lesion: Code(s): N28.9 - Disorder of kidney and ureter, unspecified Status: Acute (9) Ileus due to infection: Code(s): K56.7 - Ileus, unspecified; B99.9 - Unspecified infectious disease Status: Acute DS: Summary Hospital Course Hospital Course: 76-year-old female past medical history of hypertension presenting to the emergency department for evaluation for nausea vomiting and diarrhea. Patient states that a few days ago she started having upper abdominal pain that gradually progressed into the lower abdomen. Associated with nausea and vomiting and diarrhea. CT abdomen pelvis show Dilated appendix with surrounding inflammatory changes including edematous cecal wall thickening at the appendiceal orifice consistent with acute appendicitis. Small collection of nonloculated appearing fluid near the appendix but no organized abscess or free intraperitoneal gas. Multiple dilated loops of small bowel which appears to gradually decrease caliber distally in the right lower quadrant where there is some wall thickening of the small bowel but no discrete transition point and would favor enteritis reactive ileus related to acute appendicitis over a bowel obstruction. Some degree of intestinal malrotation but without evident volvulus. 1.4 cm indeterminate left renal lesion which could represent a statistically most likely complex mixed/proteinaceous cyst versus less likely solid enhancing renal cell carcinoma. Recommend further evaluation with follow-up pre and postcontrast MRI or CT. Patient was also found to have a UTI with 1+ leukocyte esterase, and negative for nitrates, 2+ bacteria. Nonobstructing 2 mm left renal stone. Cholelithiasis. Patient was seen by General surgery will plan to go to OR 04/21- Laparoscopic appendectomy 2. Laparoscopic drainage of intra-abdominal abscess She developed ileus postoperatively, which resolved with IV fluids, bowel rest, and Bowel regimen. She is cleared for discharge with surgery, f/u in 2 weeks. Need to f/u with PCP: # 1.4 cm indeterminate left renal lesion which could represent a statistically most likely complex mixed/proteinaceous cyst versus less likely solid enhancing renal cell carcinoma. Recommend further evaluation with follow-up pre and postcontrast MRI or CT. # accidental finding gallstones on CT Status at Discharge Functional status at discharge: independent ambulation Overall status at discharge: patient is progressing back to baseline Time Spent with Patient Time attestation: Total time spent providing and/or coordinating discharge services: Time spent: Greater than 30 minutes Exam Narrative: General: well appearing, appears stated age. HEENT: normocephalic, atraumatic. Mucous membranes moist. EOMI, PERRLA, bilateral sclera anicteric, no conjunctival injection. Neck supple without JVD, lymphadenopathy, or bruit. Respiratory: clear to ascultation bilaterally. No rales/rhonic/wheezes. Cardiovascular: Regular rate and rhythm, normal S1-S2 upon auscultation. No murmurs, rubs, or clicks. PMI is nondisplaced, capillary refill less than 3 second. Abdomen: laparoscopic sites Dermabond. diminished BS. less distended today Extremities: No cyanosis, clubbing, or edema present. Pulses are palpable 2/2. Active ROM to all four extremities. Neuro: Alert and orientated x 4. PERRLA. Cranial nerves 2-12 intact without focal deficit. Skin: Warm, dry, and intact, without rash, erythema, or lesion. Psych: pleasant, cooperative, normal speech, normal affect, no hallucinations, no dysarthria. Const: General: comfortable DS: Data Data Completed and Pending Pending studies at discharge: Pending at discharge 04/21/24 16:09 Surgical [PTH] Routine Labs on day of discharge: Labs from last 24 hours 04/25/24 05:43 WBC 6.3 RBC 4.97 Hgb 14.0 Hct 43.5 MCV 87.5 MCH 28.2 MCHC 32.2 RDW 14.0 Plt Count 301 MPV 9.5 Sodium 133 L Potassium 3.9 Chloride 104 Carbon Dioxide 27 Anion Gap 2 L BUN 11 D Creatinine 0.90 Estim Creat Clear Calc Not Reportable Estimated GFR > 60 Glucose 94 Calcium 9.4 Preliminary micro results at discharge 04/21/24 14:15 Blood Culture - Preliminary Blood 04/21/24 14:15 Blood Culture - Preliminary Blood Discharge Plan Discharge Attending physician on discharge: Elvia Weaver Consulting providers: Mode Sawyer Discharging Clinician: Mary Anderson Patient Disposition: Home, Self-Care Activity: other - see discharge instructions Diet: regular Wound Care Instructions: other - see discharge instructions Discharge Instructions: 04/21- Laparoscopic appendectomy with DR Sawyer Please f/u with DR Sawyer in 2 weeks- call for an gino. Need to f/u with PCP: # 1.4 cm indeterminate left renal lesion which could represent a statistically most likely complex mixed/proteinaceous cyst versus less likely solid enhancing renal cell carcinoma. Recommend further evaluation with follow-up pre and postcontrast MRI or CT. # accidental finding gallstones on CT DISCHARGE INSTRUCTION SHEET FOR HERNIA, GALLBLADDER AND APPENDIX SURGERIES DR. SAWYER PATIENT TO TAKE HOME 1. May shower, no soaking in bath x 2weeks. 2. Call office for: * Wound increasingly painful or bleeding * Vomiting * Fever of greater than 101 degrees 3. If no bowel movement for three days, take 1 oz. (30 ml) Milk of Magnesia or MiraLax 17g 1 to 2 times daily. 4. No heavy lifting > 10-15 pounds x weeks for hernia repairs and 2 weeks for laparoscopic cholecystectomy or appendectomy. 5. No driving for 3 days or while taking narcotic pain medications. 6. Ice to surgical site for 48 hours (30 min on, then 30 min off). 7. Up walking 10-30 minutes three times per day. 8. Resume previous home medications. 9. Follow-up 10-14 days in office for wound check or as previously scheduled. ([phone]) 10. Oral pain medications prescription to be sent to pharmacy. Take Tylenol 500mg every 6 hours and Ibuprofen 600mg every 6 hours for the first 2 days, then as needed. 11. NUTRITION: Start out by drinking fluids and increase your diet as tolerated. If you experience nausea, try dry toast, crackers, and 7-UP. If nausea or vomiting persists, contact your surgeon?s office. 12. Gallbladders-Low Fat Diet for 2 weeks (send care note of low fat diet) 13. Inguinal Hernias-wear scrotal support for 48 hours 14. Abdominal Hernias-if sent home with abdominal binder, wear for the first 2 weeks (may remove to shower or at night to sleep). Revised August 2018 Patient Instructions: Antibiotic Form Patient Language: Kyrgyz Stand Alone Forms: General Discharge Information Follow-up/Referrals: Mode Sawyer, [Physician] - 2 Weeks Discharge Medications: New hydrocodone-acetaminophen 5-325 mg tablet 1 tablet PO Q4H PRN (Reason: pain) Qty: 10 0RF amoxicillin-pot clavulanate 875-125 mg tablet 1 tablet PO Q12H 7 Days Qty: 14 0RF metronidazole 500 mg tablet 500 mg PO Q8H 7 Days Qty: 21 0RF Continued calcium carbonate [Calcium 600] 600 mg calcium (1,500 mg) tablet 600 mg PO BID fexofenadine [Allergy Relief (fexofenadine)] 180 mg tablet 180 mg PO DAILY PRN (Reason: allergy) cholecalciferol (vitamin D3) 50 mcg (2,000 unit) capsule 2,000 unit PO DAILY cyanocobalamin (vitamin B-12) [Vitamin B-12] 500 mcg tablet 500 mcg PO DAILY lisinopril 40 mg tablet 40 mg PO DAILY Qty: 90 3RF omeprazole 20 mg capsule,delayed release(DR/EC) 20 mg PO DAILY Qty: 90 3RF celecoxib [Celebrex] 200 mg capsule 200 mg PO DAILY PRN (Reason: pain) Qty: 90 3RF Rx Instructions: switching from Naprosyn before surgery Date of admission: 04/23/24 12:50 Primary Care Provider: Vu Adorno Admitting Provider: Nikos Zuniga Attending physician on admission: Mode Sawyer Condition: Improved Quality VTE Prophylaxis VTE prophylaxis: mechanical ordered and pharmacologic ordered Hospitalist MIPS Heart Failure (Exclusion) Patient has history of Heart Transplant or Left Ventricular Assistive Device?: No IF YES, STOP HERE Heart Failure (Qualifier) Patient has current or prior documentation of LVEF less than or equal to 40%, or mod/servere depressed LVSF?: No IF NO, STOP HERE
== END 2024-04-25 12:02 | disposition home or self-care (01) | DRG 398 ==
LOC: ANHED 14:06 → ANH3MED 14:36
PROVIDERS: Emergency Medicine; Surgery; Admitting Provider General Practice; Emergency Provider Emergency Medicine; PCP Family Medicine; Visit Provider Nurse Practitioner
PROC: 0DTJ4ZZ Resection of Appendix, Percutaneous Endoscopic Approach (ICD-10-PCS; CPT 44970; principal; 2024-04-21 15:30)
DX: K35.211 Acute appendicitis with generalized peritonitis, with perforation and abscess (principal); E87.1 Hypo-osmolality and hyponatremia; N39.0 Urinary tract infection, site not specified; K56.7 Ileus, unspecified; Q43.3 Congenital malformations of intestinal fixation; K91.89 Other postprocedural complications and disorders of digestive system; K80.20 Calculus of gallbladder without cholecystitis without obstruction; K52.9 Noninfective gastroenteritis and colitis, unspecified; N28.89 Other specified disorders of kidney and ureter; B99.9 Unspecified infectious disease; E78.2 Mixed hyperlipidemia; E66.9 Obesity, unspecified; G47.10 Hypersomnia, unspecified; G89.29 Other chronic pain; I10 Essential (primary) hypertension; M15.9 Polyosteoarthritis, unspecified; M54.6 Pain in thoracic spine; N20.0 Calculus of kidney; Z86.16 Personal history of COVID-19; Z87.891 Personal history of nicotine dependence; Z68.38 Body mass index [BMI] 38.0-38.9, adult
CPT/HCPCS: 36415; 74177; 80048; 80053; 81001; 83690; 85025; 85027; 87040; 87086; 87181; 87186; 88304; 96361; 96374; 96375; 96376; 99285; A9270; G0378; J1100; J1650; J2003; J2405; J2470; J2543; J2704; J3010; J3480; J7030; J7120; Q9967

== ENCOUNTER 2024-05-16 07:57 | Outpatient (CLI) | payer MEDICARE, SELFPAY ==
--- NOTE | ~2024-05-16 | MR_ITS ---
EXAMINATION: MR renal wo/w con DATE: 05/16/2024 08:43 INDICATION: Other specified disorders of kidney and ureter. TECHNIQUE: Magnetic resonance imaging (MRI) of the abdomen was performed without and with 17 mL Multi Kallie intravenous contrast. COMPARISON: CT abdomen and pelvis 04/21/2024 FINDINGS: The liver and spleen are normal. There is a gallstone in the gallbladder which is normal in size. The re is a 12 mm multiloculated cystic lesion in the uncinate process of the pancreas with thin septa. T here is a 4 mm cystic lesion of the body of the pancreas. The main pancreatic duct is normal in calib er. The spleen and adrenal glands are normal. There are cysts in the kidneys measuring up to 4 mm on the right. There is a 15 mm hemorrhagic cyst in left kidney. There are no dilated loops of bowel. The re are no pathologically enlarged lymph nodes. There is no free intraperitoneal fluid. IMPRESSION: 1. 15 mm hemorrhagic cyst in left kidney. 2. Two low-risk cystic lesions of the pancreas measuring up to 12 mm. The differential diagnosis incl udes pseudocyst, intraductal papillary mucinous neoplasm (IPMN), mucinous cystic neoplasm (MCN), sero us cystadenoma, and neuroendocrine tumor. Abdomen MRI without and with contrast is recommended in 2 y ears. Reviewed, dictated and finalized at location [facility]. 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 15 mm hemorrhagic cyst in left kidney. 2. Two low-risk cystic lesions of the pancreas measuring up to 12 mm. The diffe rential diagnosis includes pseudocyst, intraductal papillary mucinous neoplasm (IPMN), mucinous cystic neoplasm (MCN), serous cystadenoma, and neuroendocrine tumor. Abdomen MRI without and with contrast is recommended in 2 years.
== END 2024-05-16 07:58 | disposition home or self-care (01) ==
LOC: MICIMG 07:58
PROVIDERS: PCP Family Medicine; Visit Provider Family Medicine
DX: N28.89 Other specified disorders of kidney and ureter (principal); N28.1 Cyst of kidney, acquired
CPT/HCPCS: 74183; A9577

== ENCOUNTER 2025-01-05 10:31 | Outpatient (CLI) | payer MEDICARE, SELFPAY ==
--- NOTE | ~2025-01-05 | MM_ITS ---
EXAMINATION: MM screening [facility] BI w [facility]cos HISTORY: Screening TECHNIQUE: Craniocaudal and mediolateral oblique 3-D tomosynthesis images were obtained and synthetic 2-D images were generated. CAD analysis was submitted and interpreted. COMPARISON: Mammograms from 01/08/2023 and 08/27/2020 BREAST PARENCHYMAL COMPOSITION: Not Dense: The breasts are almost entirely fatty. FINDINGS: There is no evidence of suspicious mass, calcification, or architectural distortion to suggest malignancy in either breast. [There has been no significant interval change. IMPRESSION: 1. No mammographic evidence of malignancy. Recommend routine screening mammography in one year. BI-RADS Category 1: Negative Reviewed, dictated, and finalized at Location [facility]. Reviewed, dictated and finalized at location [facility]. IMPRESSION: 1. No mammographic evidence of malignancy. Recommend routine screening mammogra phy in one year. BI-RADS Category 1: Negative
== END 2025-01-05 10:32 | disposition home or self-care (01) ==
LOC: MICIMG 10:32
PROVIDERS: PCP Family Medicine; Visit Provider Family Medicine
DX: Z12.31 Encounter for screening mammogram for malignant neoplasm of breast (principal)
CPT/HCPCS: 77063; 77067